=== PATIENT | male | born 1935 | race Caucasian/White ===

== ENCOUNTER → 2016-11-11 | Outpatient (CLI) | payer MEDICARE, BC ==
[~2016-11-11] MED LIST: AMIT10TA6 PO; AMIT50TA3 PO; ARIC23TA PO; BACL10TA PO; CLIN1CAP5 PO; CLON1TAB PO; GABA100C4 PO; GABA300C5 PO; HYDR-3516 PO; HYDR-3583 PO; INHALER PO; LYRI50CA PO; MACR100C2 PO; MACR100C3 PO; MEMA1TAB2 PO; MEMA28CA PO; NEUR300C PO; OXYC-259 PO; PREG25 PO; REFRDRO EACH EYE; TAMS5CAP PO; TIOT1AER INH; TOPR100T PO; TRAM50TA PO; URIB118C; URIB118C PO
--- NOTE | 2016-11-17 10:07 | RSPPFT ---
DATE OF PROCEDURE: 11/11/16 COMMENTS: Spirometry demonstrates an FEV1 of 1.1 at 57% of predicted, FVC of 2.4 at 72%, FEF 25-75 at 24% of predicted. Post-bronchodilator study demonstrated significant improvements in the FEV1 and FVC. Lung volumes demonstrated a raised RV/TLC ratio suggesting hyperinflation with air trapping. Diffusion capacity is mildly reduced. Flow volume loops are suggestive of an obstructive pattern. IMPRESSION: 1. Severe obstructive disease. 2. Significant response to use of bronchodilator indicating some reversibility. 3. Mild reduction in diffusion capacity.
== END ==
LOC: HRSP 10:33
DX: J44.9 Chronic obstructive pulmonary disease, unspecified (principal); R06.00 Dyspnea, unspecified
CPT/HCPCS: 94060; 94726; 94729

== ENCOUNTER → 2016-11-16 | Outpatient (CLI) | payer MEDICARE, BC ==
[2016-11-16 13:00] LABS: HEMATOCRIT 43.8 % (39.0-51.0); MEAN CELL VOLUME 91.7 FL (80.0-100.0); MEAN CORPUSCULAR HEMOGLOBIN 30.9 PG (27.0-34.0); MEAN CORPUSCULAR HGB CONC 33.7 % (32.0-36.0); PLATELET COUNT 152 TH/MM3 (150-450); RED BLOOD COUNT 4.78 MIL/MM3 (4.50-5.90); RED CELL DISTRIBUTION WIDTH 13.5 % (11.6-17.2); REVIEW FLAG FINAL; WHITE BLOOD COUNT 5.2 TH/MM3 (4.0-11.0)
[2016-11-16 13:31] LABS: ALKALINE PHOSPHATASE 62 U/L (45-117); ALT (GPT) 12 U/L (12-78); ANION GAP 8 MEQ/L (5-15); AST (GOT) 24 U/L (15-37); BICARBONATE 29.1 MEQ/L (21.0-32.0); BLOOD UREA NITROGEN 6 MG/DL (7-18); CHLORIDE 103 MEQ/L (98-107); GLOMERULAR FILTRATION RATE 82 ML/MIN (>89); GLUCOSE,FASTING 101 MG/DL (74-99); HDL CHOLESTEROL 74.5 MG/DL (40.0-60.0); LDL CHOLESTEROL 186 MG/DL (0-99); LDL CHOLESTEROL DIRECT 206 MG/DL (0-99); POTASSIUM 4.1 MEQ/L (3.5-5.1); SODIUM (NA) 140 MEQ/L (136-145); TOTAL BILIRUBIN ADULT 0.7 MG/DL (0.2-1.0)
== END ==
LOC: PLAB 09:47
PROVIDERS: ATTEND Family Medicine
DX: E78.2 Mixed hyperlipidemia (principal); I10 Essential (primary) hypertension; I73.9 Peripheral vascular disease, unspecified; J44.9 Chronic obstructive pulmonary disease, unspecified
CPT/HCPCS: 36415; 80053; 80061; 83721; 85027

== ENCOUNTER 2017-01-04 10:38 | Emergency (ER) | payer MEDICARE, BC ==
[~2017-01-04] VITALS: Ht 157.5 cm; Wt 80.9 kg
[~2017-01-04 10:38] MED LIST changes: -AMIT50TA3 PO; -CLIN1CAP5 PO; -CLON1TAB PO; -GABA300C5 PO; -HYDR-3516 PO; -HYDR-3583 PO; -INHALER PO; -LYRI50CA PO; -MACR100C2 PO; -MACR100C3 PO; -MEMA1TAB2 PO; -NEUR300C PO; -OXYC-259 PO; -PREG25 PO; -REFRDRO EACH EYE; -TIOT1AER INH; -URIB118C; -URIB118C PO
[2017-01-04 10:52] VITALS: BP 139/94; PULSE 57; RESP 16; O2SAT 96
--- NOTE | 2017-01-04 11:36 | PD ---
HPI Chief Complaint: Complaint Time Seen by Provider: 11:19 Travel History International Travel<30 days: No Contact w/Intl Traveler<30days: No Traveled to known affect area: No History of Present Illness HPI This patient complains of a flare of his chronic back pain. He has bilateral low back pain. No injury or fever or neurologic complaint. He is had months to years of this type of pain. He takes muscle relaxants and narcotics daily for it. He follows with pain management. He's had multiple pain management injections that don't last but he does get temporary relief from them. He is frustrated with his continued pain. No abdominal pain or urinary complaints. Severity is moderate PFSH Past Medical History AAA: Yes Arthritis: Yes Asthma: Yes Atrial Fibrillation: Yes Blood Disorders: No Anxiety: Yes Cancer: No Cardiovascular Problems: Yes (htn on meds) High Cholesterol: Yes COPD: Yes Dementia: Yes Diabetes: No Diminished Hearing: No Endocrine: No Gastrointestinal Disorders: Yes (IBS) Glaucoma: No Genitourinary: Yes (ENLARGED PROSTATE) Hepatitis: No Hiatal Hernia: No Hypertension: Yes Immune Disorder: No Medical other: Yes (C/O TINGLING TO TOES RIGHT >LEFT) Musculoskeletal: Yes Neurologic: Yes Respiratory: Yes (ASTHMA, COPD) Immunizations Current: Yes Thyroid Disease: No PNEUMOCCOCAL Vaccine (Year): 2 Past Surgical History Abdominal Surgery: No AICD: No Cardiac Surgery: No Ear Surgery: No Endocrine Surgery: No Eye Surgery: No Genitourinary Surgery: No Gynecologic Surgery: No Joint Replacement: Yes (RIGHT HIP) Neurologic Surgery: Yes (LUMBAR LAMINECTOMY, BACK SURGERY FOR DROP FOOT) Oral Surgery: No Pacemaker: No Thoracic Surgery: No Other Surgery: Yes (RIGHT UPPER LEG STENT) Social History Alcohol Use: No Tobacco Use: No (QUIT 30 YEARS AGO ) Substance Use: No Allergies-Medications (Allergen,Severity, Reaction): Coded Allergies: Amoxicillin (Verified Allergy, Severe, Hives, 01/04/17) Ativan (Verified Allergy, Severe, Confusion, 01/04/17) Fentanyl (Verified Allergy, Severe, CONFUSION, 01/04/17) Cipro (Verified Allergy, Mild, GI SYMPTOMS, 01/04/17) Percocet (Verified Allergy, Unknown, PT DOES NOT KNOW WHAT REACTION IS, ) UNKNOWN REACTION Lortab (Verified Adverse Reaction, Intermediate, NAUSEA AND CONSTIPATION, 01/04/17) Reported Meds & Prescriptions Reported Meds & Active Scripts Active Tramadol (Tramadol HCl) 50 Mg Tab 50 Mg PO Q6H PRN Reported Aricept (Donepezil) 23 Mg Tab 23 Mg PO HS Do not split, crushed or chewed. Namenda Xr (Memantine) 28 Mg Caper 28 Mg PO DAILY Flomax (Tamsulosin HCl) 0.4 Mg Cap 0.8 Mg PO HS Amitriptyline (Amitriptyline HCl) 10 Mg Tab 10 Mg PO HS Gabapentin 100 Mg Cap 200 Mg PO TID Baclofen 10 Mg Tab 10 Mg PO BID Toprol XL (Metoprolol Succinate) 100 Mg Tab 100 Mg PO DAILY Review of Systems General / Constitutional: No: Fever HENT: No: Headaches Cardiovascular: No: Chest Pain or Discomfort Physical Exam Narrative GASTROINTESTINAL: Abdomen soft, non-tender, nondistended. Positive bowel sounds. No hepato-splenomegaly, or palpable masses. No guarding. SKIN: Inspection shows no rash or ulcers. Palpation shows no induration or nodules. NEUROLOGICAL: Awake and alert. Pupils are equal round and reactive. Motor and sensory grossly within normal limits. Five out of 5 muscle strength in all muscle groups. Normal speech. Data Data Last Documented VS Vital Signs Date Time Temp Pulse Resp B/P Pulse Ox O2 Delivery O2 Flow Rate FiO2 01/04/17 10:52 57 16 139/94 96 Orders Ketorolac Inj (Toradol Inj) (01/04/17 11:45) [facility] Medical Decision Making Medical Screen Exam Complete: Yes Emergency Medical Condition: Yes Medical Record Reviewed: Yes Differential Diagnosis Acute flare of chronic back pain, sciatica, lumbar strain Narrative Course I have reviewed the patient's electronic medical record. Patient is at neurologic baseline but no red flags to suggest emergent imaging is indicated He seems to be having an acute flare of chronic pain However he is driving so I cannot give him anything sedating I gave him Toradol injection He has an appointment with his primary physician tomorrow morning Diagnosis Primary Impression: Acute exacerbation of chronic low back pain Additional Instructions: The patient was advised to follow up with their physician and return if they worsen. Med/Other Pt SpecificInfo: Other Disposition: 01 DISCHARGE HOME Condition: Stable Marc Barragan MD Jan 04, 2017 11:35
[2017-01-04] MEDS ORDERED: KETOROLAC TROMETHAMINE 60 MG/2 ML (IM) VIAL IM ONE (11:45)
[2017-01-15] MEDS ORDERED: HYDR-3583 PO (07:58)
[2017-01-15] MEDS ORDERED: PREG25 PO (07:58)
[2017-01-15] MEDS ORDERED: URIB118C PO (07:58)
[2017-01-15] MEDS ORDERED: CLON1TAB PO (07:58)
[2017-01-15] MEDS ORDERED: MEMA1TAB2 PO (07:58)
[2017-01-15] MEDS ORDERED: INHALER PO (08:00)
[2017-03-09] MEDS ORDERED: GABA300C5 PO (10:37)
[2017-04-06] MEDS ORDERED: MACR100C3 PO (13:59)
[2017-04-06] MEDS ORDERED: NEUR300C PO (13:59)
[2017-04-13] MEDS ORDERED: REFRDRO EACH EYE (09:23)
== END 2017-01-04 11:57 | disposition home or self-care (01) ==
LOC: PHED 10:38
DX: M54.5 Low back pain (principal); G89.29 Other chronic pain
CPT/HCPCS: 96372; 99283; J1885

== ENCOUNTER → 2017-02-12 | Outpatient (CLI) | payer MEDICARE, BC ==
[~2017-02-12] MED LIST changes: +AMIT50TA3 PO; +CLIN1CAP5 PO; +CLON1TAB PO; +GABA300C5 PO; +HYDR-3516 PO; +HYDR-3583 PO; +INHALER PO; +LYRI50CA PO; +MACR100C2 PO; +MACR100C3 PO; +MEMA1TAB2 PO; -MEMA28CA PO; +NEUR300C PO; +OXYC-259 PO; +PREG25 PO; +REFRDRO EACH EYE; +TIOT1AER INH; -TRAM50TA PO; +URIB118C; +URIB118C PO
[2017-02-12 12:49] LABS: HEMATOCRIT 41.1 % (39.0-51.0); MEAN CELL VOLUME 90.9 FL (80.0-100.0); MEAN CORPUSCULAR HEMOGLOBIN 30.3 PG (27.0-34.0); MEAN CORPUSCULAR HGB CONC 33.3 % (32.0-36.0); PLATELET COUNT 154 TH/MM3 (150-450); RED BLOOD COUNT 4.53 MIL/MM3 (4.50-5.90); RED CELL DISTRIBUTION WIDTH 13.1 % (11.6-17.2); REVIEW FLAG FINAL; WHITE BLOOD COUNT 5.4 TH/MM3 (4.0-11.0)
[2017-02-12 13:07] LABS: ALKALINE PHOSPHATASE 69 U/L (45-117); ALT (GPT) 10 U/L (12-78); GLUCOSE,FASTING 91 MG/DL (74-99); HDL CHOLESTEROL 61.1 MG/DL (40.0-60.0); LDL CHOLESTEROL DIRECT 145 MG/DL (0-99); TOTAL BILIRUBIN ADULT 0.6 MG/DL (0.2-1.0)
[2017-02-12 13:17] LABS: ANION GAP 5 MEQ/L (5-15); AST (GOT) 35 U/L (15-37); BICARBONATE 29.5 MEQ/L (21.0-32.0); BLOOD UREA NITROGEN 5 MG/DL (7-18); CHLORIDE 104 MEQ/L (98-107); GLOMERULAR FILTRATION RATE 85 ML/MIN (>89); LDL CHOLESTEROL 134 MG/DL (0-99); POTASSIUM 4.9 MEQ/L (3.5-5.1); SODIUM (NA) 138 MEQ/L (136-145)
== END ==
LOC: PLAB 09:23
PROVIDERS: ATTEND Family Medicine
DX: E78.2 Mixed hyperlipidemia (principal); I10 Essential (primary) hypertension; I73.9 Peripheral vascular disease, unspecified; G30.9 Alzheimer's disease, unspecified
CPT/HCPCS: 36415; 80053; 80061; 83721; 85027

== ENCOUNTER 2017-02-22 18:59 | Emergency (ER) | payer MEDICARE, BC ==
[~2017-02-22] VITALS: Ht 167.6 cm; Wt 84.7 kg
[~2017-02-22 18:59] MED LIST changes: -AMIT50TA3 PO; -CLIN1CAP5 PO; -GABA300C5 PO; -HYDR-3516 PO; -LYRI50CA PO; -MACR100C2 PO; -MACR100C3 PO; -NEUR300C PO; -OXYC-259 PO; -REFRDRO EACH EYE; -TIOT1AER INH; -URIB118C
[2017-02-22 19:12] VITALS: BP 145/69; PULSE 60; RESP 18; TEMP 98.9; O2SAT 94
[2017-02-22] MEDS ORDERED: TIOT1AER INH (19:44)
[2017-02-22] MEDS ORDERED: LYRI50CA PO (19:44)
[2017-02-22] MEDS ORDERED: HYDR-3583 PO (19:44)
[2017-02-22] MEDS ORDERED: URIB118C (19:44)
[2017-02-22] MEDS ORDERED: MEMA1TAB2 PO (19:44)
[2017-02-22] MEDS ORDERED: AMIT50TA3 PO (19:44)
[2017-02-22] MEDS ORDERED: SODIUM CHLORIDE 0.9% FLUSH 10 ML FLUSH IV FLUSH PRN (20:15)
--- NOTE | 2017-02-22 20:17 | PD ---
HPI Chief Complaint: Edema Time Seen by Provider: 19:36 Travel History International Travel<30 days: No Contact w/Intl Traveler<30days: No Traveled to known affect area: No History of Present Illness HPI Patient 81-year-old male presents emergency department for evaluation of bilateral lower extremity swelling. Otherwise the patient has a history of poor circulation in his lower extremities. She states that he has not been wearing his compression stockings for many weeks and the swelling started yesterday. He denies any shortness of breath denies any kidney problems liver problems. Patient also states that Dr. Alvarado put a stent in his thigh at one point for poor circulation. 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 PFSH Past Medical History AAA: Yes Arthritis: Yes Asthma: Yes Atrial Fibrillation: Yes Blood Disorders: No Anxiety: Yes Cancer: No Cardiovascular Problems: Yes (htn on meds) High Cholesterol: Yes COPD: Yes Dementia: Yes Diabetes: No Diminished Hearing: No Endocrine: No Gastrointestinal Disorders: Yes (IBS) Glaucoma: No Genitourinary: Yes (ENLARGED PROSTATE) Hepatitis: No Hiatal Hernia: No Hypertension: Yes Immune Disorder: No Medical other: Yes (C/O TINGLING TO TOES RIGHT >LEFT) Musculoskeletal: Yes Neurologic: Yes Respiratory: Yes (ASTHMA, COPD) Immunizations Current: Yes Thyroid Disease: No Tetanus Vaccination: < 5 Years Influenza Vaccination: Yes PNEUMOCCOCAL Vaccine (Year): 2 ?: Not Past Surgical History Abdominal Surgery: No AICD: No Cardiac Surgery: No Ear Surgery: No Endocrine Surgery: No Eye Surgery: No Genitourinary Surgery: No Gynecologic Surgery: No Joint Replacement: Yes (RIGHT HIP) Neurologic Surgery: Yes (LUMBAR LAMINECTOMY, BACK SURGERY FOR DROP FOOT) Oral Surgery: No Pacemaker: No Thoracic Surgery: No Other Surgery: Yes (RIGHT UPPER LEG STENT) Social History Alcohol Use: No Tobacco Use: No (QUIT 30 YEARS AGO ) Substance Use: No Allergies-Medications (Allergen,Severity, Reaction): Coded Allergies: Amoxicillin (Verified Allergy, Severe, Hives, 02/22/17) Ativan (Verified Allergy, Severe, Confusion, 02/22/17) Fentanyl (Verified Allergy, Severe, CONFUSION, 02/22/17) Cipro (Verified Allergy, Mild, GI SYMPTOMS, 02/22/17) Percocet (Verified Allergy, Unknown, PT DOES NOT KNOW WHAT REACTION IS, ) UNKNOWN REACTION Lortab (Verified Adverse Reaction, Intermediate, NAUSEA AND CONSTIPATION, 02/22/17) Reported Meds & Prescriptions Reported Meds & Active Scripts Active Reported Hydrocodone-Acetaminophen 10-325 mg Tab 1 Tab PO Q4H PRN Memantine 10 Mg Tab 10 Mg PO BID Amitriptyline (Amitriptyline HCl) 50 Mg Tab 50 Mg PO HS Uribel (Pgsznihiyqh-Rcahc-Vfwxsjaqr Blue) 1 Cap Lyrica (Pregabalin) 50 Mg Cap 50 Mg PO BID Stiolto Respimat Inh (Tiotropium-Olodaterol Inh) 2.5-2.5 Mcg/Act Aero 2 Puff INH DAILY Aricept (Donepezil) 23 Mg Tab 23 Mg PO HS Do not split, crushed or chewed. Flomax (Tamsulosin HCl) 0.4 Mg Cap 0.8 Mg PO HS Baclofen 10 Mg Tab 10 Mg PO BID Toprol XL (Metoprolol Succinate) 100 Mg Tab 100 Mg PO DAILY Review of Systems Except as stated in HPI: all other systems reviewed are Neg Physical Exam Narrative GENERAL: Well-developed well-nourished in no apparent distress.] SKIN: Focused skin assessment warm/dry. There are bilateral skin changes of the lower extremities consistent with chronic venous stasis. Multiple varicose veins. There is signs of adequate perfusion to both lower extremities. HEAD: Atraumatic. Normocephalic. EYES: Pupils equal and round. No scleral icterus. No injection or drainage. ENT: No nasal bleeding or discharge. Mucous membranes pink and moist. NECK: Trachea midline. No JVD. CARDIOVASCULAR: Regular rate and rhythm. No murmur appreciated. RESPIRATORY: No accessory muscle use. Clear to auscultation. Breath sounds equal bilaterally. GASTROINTESTINAL: Abdomen soft, non-tender, nondistended. Hepatic and splenic margins not palpable. MUSCULOSKELETAL: No obvious deformities. No clubbing. No cyanosis. 2+ pitting bilateral lower extremity edema on the dorsum of the foot up to the proximal tibia. A small skin avulsion on the anterior tibia which is bandaged. There is a small ulcer on the posterior heel which appears noninfected. Brisk cap refill bilaterally. Dorsalis pedal pulses are palpable but weak but equal bilaterally. NEUROLOGICAL: Awake and alert. No obvious cranial nerve deficits. Motor grossly within normal limits. Normal speech. PSYCHIATRIC: Appropriate mood and affect; insight and judgment normal. Data Data Last Documented VS Vital Signs Date Time Temp Pulse Resp B/P Pulse Ox O2 Delivery O2 Flow Rate FiO2 02/22/17 22:21 60 18 160/70 94 02/22/17 21:22 Room Air 02/22/17 19:12 98.9 Orders Us Leg Venous Doppler Bilat (02/22/17 20:11) Complete Blood Count With Diff (02/22/17 20:11) Comprehensive Metabolic Panel (02/22/17 20:11) Prothrombin Time / Inr (Pt) (02/22/17 20:11) Act Partial Throm Time (Ptt) (02/22/17 20:11) Iv Access Insert/Monitor (02/22/17 20:11) Ecg Monitoring (02/22/17 20:11) Oximetry (02/22/17 20:11) Sodium Chloride 0.9% Flush (Ns Flush) (02/22/17 20:15) Chest, Single Ap (02/22/17 20:11) Labs Laboratory Tests Test 02/22/17 21:30 White Blood Count 5.7 TH/MM3 Red Blood Count 4.16 MIL/MM3 Hemoglobin 12.9 GM/DL Hematocrit 37.5 % Mean Corpuscular Volume 90.2 FL Mean Corpuscular Hemoglobin 31.0 PG Mean Corpuscular Hemoglobin 34.3 % Concent Red Cell Distribution Width 12.2 % Platelet Count 161 TH/MM3 Mean Platelet Volume 7.6 FL Neutrophils (%) (Auto) 59.8 % Lymphocytes (%) (Auto) 27.1 % Monocytes (%) (Auto) 8.5 % Eosinophils (%) (Auto) 2.8 % Basophils (%) (Auto) 1.8 % Neutrophils # (Auto) 3.3 TH/MM3 Lymphocytes # (Auto) 1.6 TH/MM3 Monocytes # (Auto) 0.5 TH/MM3 Eosinophils # (Auto) 0.2 TH/MM3 Basophils # (Auto) 0.1 TH/MM3 CBC Comment DIFF FINAL Differential Comment Prothrombin Time 10.6 SEC Prothromb Time International 1.0 RATIO Ratio Activated Partial 26.7 SEC Thromboplast Time Sodium Level 143 MEQ/L Potassium Level 4.4 MEQ/L Chloride Level 104 MEQ/L Carbon Dioxide Level 34.4 MEQ/L Anion Gap 5 MEQ/L Blood Urea Nitrogen 9 MG/DL Creatinine 1.50 MG/DL Estimat Glomerular Filtration 45 ML/MIN Rate Random Glucose 86 MG/DL Calcium Level 8.6 MG/DL Total Bilirubin 0.2 MG/DL Aspartate Amino Transf 21 U/L (AST/SGOT) Alanine Aminotransferase 11 U/L (ALT/SGPT) Alkaline Phosphatase 63 U/L Total Protein 6.6 GM/DL Albumin 2.9 GM/DL [facility] Medical Decision Making Medical Screen Exam Complete: Yes Emergency Medical Condition: Yes Differential Diagnosis pedal edema, kidney failure unlikely, chf unlikely, dvt unlikely. Narrative Course patient roomed in ed, my overall impression is bilateral pedal edema in a patient with a history of peripheral vascular edema who has not been wearing his compression stockings. he appears well. no pulmonary congestion. labs show minimal elevation of cr. this was discussed with patient and he would like to go home and follow up with his pcp. discussed symptomatic management and return to ed criteria. Diagnosis Primary Impression: Pedal edema Disposition: 01 DISCHARGE HOME Condition: Stable Lj Borjas MD Feb 22, 2017 20:17
--- NOTE | 2017-02-22 20:40 | RADHPO ---
EXAM DATE/TIME: 02/22/2017 20:21 [facility] COMPARISON: CHEST SINGLE AP, October 26, 2015, 10:53. INDICATIONS : Shortness of breath. MEDICAL HISTORY : None. SURGICAL HISTORY : None. ENCOUNTER: Initial ACUITY: 1 day PAIN SCORE: 0/10 LOCATION: Bilateral chest FINDINGS: A single view of the chest demonstrates the lungs to be symmetrically aerated without evidence of mas s, infiltrate or effusion. The cardiomediastinal contours are unremarkable. Osseous structures are intact. CONCLUSION: No evidence of acute cardiopulmonary disease. Jamie Mauro MD on February 22, 2017 at 20:37 Board Certified Radiologist. This report was verified electronically.
--- NOTE | 2017-02-22 21:08 | RADHPO ---
EXAM DATE/TIME: 02/22/2017 20:29 [facility] COMPARISON: US LEG RIGHT VENOUS DOPPLER, April 05, 2014, 14:59. INDICATIONS : Bilateral leg swelling. MEDICAL HISTORY : Hypertension. High cholesterol. AAA. PVD. Afib. COPD. SURGICAL HISTORY : Lumbar laminectomy. Angioplasty. Right foot surgery. Right leg stent. ENCOUNTER: Initial ACUITY: 1 week PAIN SCORE: 4/10 LOCATION: Bilateral leg. TECHNIQUE: Venous ultrasound of the left and right leg was performed from the inguinal ligament to the proximal calf. Real-time, color Doppler and spectral tracing, compression and augmentation techniques were us ed. FINDINGS: RIGHT LEG: There is normal compressibility of the deep venous system from the inguinal region to the proximal ca lf. No echogenic clot is seen in the lumen of the common femoral, femoral, popliteal, and posterior tibial veins. There is a normal response of the venous system to proximal and distal augmentation an d respiration. LEFT LEG: There is normal compressibility of the deep venous system from the inguinal region to the proximal ca lf. No echogenic clot is seen in the lumen of the common femoral, femoral, popliteal, and posterior tibial veins. There is a normal response of the venous system to proximal and distal augmentation an d respiration. CONCLUSION: No DVT of either lower extremity. Jamie Mauro MD on February 22, 2017 at 21:06 Board Certified Radiologist. This report was verified electronically.
[2017-02-22 21:22] VITALS: O2SAT 94
[2017-02-22 21:35] LABS: AUTOMATED NEUTROPHIL # 3.3 TH/MM3 (1.8-7.7); BASOPHIL # 0.1 TH/MM3 (0-0.2); BASOPHIL % 1.8 % (0.0-2.0); EOSINOPHIL # 0.2 TH/MM3 (0-0.4); EOSINOPHIL % 2.8 % (0.0-4.0); HEMATOCRIT 37.5 % (39.0-51.0); HEMO FLAGS DIFF FINAL; LYMPH % 27.1 % (9.0-44.0); LYMPHOCYTE # 1.6 TH/MM3 (1.0-4.8); MEAN CELL VOLUME 90.2 FL (80.0-100.0); MEAN CORPUSCULAR HGB CONC 34.3 % (32.0-36.0); MONO % 8.5 % (0.0-8.0); NEUT % 59.8 % (16.0-70.0); PLATELET COUNT 161 TH/MM3 (150-450); RED BLOOD COUNT 4.16 MIL/MM3 (4.50-5.90); RED CELL DISTRIBUTION WIDTH 12.2 % (11.6-17.2); WHITE BLOOD COUNT 5.7 TH/MM3 (4.0-11.0)
[2017-02-22 21:42] LABS: CHLORIDE 104 MEQ/L (98-107); POTASSIUM 4.4 MEQ/L (3.5-5.1); SODIUM (NA) 143 MEQ/L (136-145)
[2017-02-22 21:46] LABS: ANION GAP 5 MEQ/L (5-15); BICARBONATE 34.4 MEQ/L (21.0-32.0); BLOOD UREA NITROGEN 9 MG/DL (7-18)
[2017-02-22 21:49] LABS: ALT (GPT) 11 U/L (12-78); AST (GOT) 21 U/L (15-37); GLOMERULAR FILTRATION RATE 45 ML/MIN (>89)
[2017-02-22 21:51] LABS: TOTAL BILIRUBIN ADULT 0.2 MG/DL (0.2-1.0)
[2017-02-22 21:52] LABS: ALKALINE PHOSPHATASE 63 U/L (45-117)
[2017-02-22 21:57] LABS: APTT (PATIENT) 26.7 SEC (24.3-30.1); PROTHROMBIN TIME - PATIENT 10.6 SEC (9.8-11.6)
[2017-02-22 22:21] VITALS: BP 160/70
[2017-03-09] MEDS ORDERED: GABA300C5 PO (10:37)
[2017-04-06] MEDS ORDERED: MACR100C3 PO (13:59)
[2017-04-06] MEDS ORDERED: NEUR300C PO (13:59)
[2017-04-13] MEDS ORDERED: REFRDRO EACH EYE (09:23)
== END 2017-02-22 22:42 | disposition home or self-care (01) ==
LOC: PHED 18:59
DX: R60.0 Localized edema (principal); S81.801A Unspecified open wound, right lower leg, initial encounter; L97.419 Non-pressure chronic ulcer of right heel and midfoot with unspecified severity; M19.90 Unspecified osteoarthritis, unspecified site; E78.00 Pure hypercholesterolemia, unspecified; J44.9 Chronic obstructive pulmonary disease, unspecified; F03.90 Unspecified dementia, unspecified severity, without behavioral disturbance, psychotic disturbance, mood disturbance, and anxiety; I48.91 Unspecified atrial fibrillation; I10 Essential (primary) hypertension; J45.909 Unspecified asthma, uncomplicated; Z96.641 Presence of right artificial hip joint; X58.XXXA Exposure to other specified factors, initial encounter; Y93.9 Activity, unspecified; Y92.9 Unspecified place or not applicable; Y99.9 Unspecified external cause status
CPT/HCPCS: 71010; 80053; 85025; 85610; 85730; 93970

== ENCOUNTER 2017-03-26 00:26 | Emergency (ER) | payer MEDICARE, BC ==
[~2017-03-26] VITALS: Ht 167.6 cm; Wt 93.4 kg
[~2017-03-26 00:26] MED LIST changes: -AMIT10TA6 PO; +AMIT50TA3 PO; -CLON1TAB PO; -GABA100C4 PO; +GABA300C5 PO; -INHALER PO; +LYRI50CA PO; -PREG25 PO; +TIOT1AER INH; +URIB118C; -URIB118C PO
[2017-03-26 00:33] VITALS: BP 133/68; PULSE 59; RESP 16; TEMP 98; O2SAT 93
[2017-03-26 01:23] VITALS: BP 131/60; PULSE 54; RESP 16; O2SAT 93
[2017-03-26 02:23] LABS: BLOOD, URINE TRACE (NEG); GLUCOSE,URINE NEG (NEG); KETONE, URINE NEG (NEG); NITRITE,URINE NEG (NEG); PH, URINE 6.5 (5.0-8.5)
[2017-03-26 02:31] LABS: RBC, URINE 0-3 /hpf (0-3); URINE COLOR GREEN (YELLW/STRAW)
[2017-03-26 02:32] LABS: BACTERIA, URINE OCC /hpf; COMMENT (UR) CULTURE INDICATED; CULTURE IF INDICATED CULTURE INDICATED; SQUAMOUS EPITHELIAL CELL URINE 0-5 /hpf (0-5)
[2017-03-26 02:45] VITALS: BP 158/74; PULSE 64; RESP 16; O2SAT 98
[2017-03-26 02:46] LABS: POTASSIUM 4.1 MEQ/L (3.5-5.1)
[2017-03-26 02:49] LABS: BICARBONATE 28.8 MEQ/L (21.0-32.0)
[2017-03-26 02:50] LABS: AUTOMATED NEUTROPHIL # 5.4 TH/MM3 (1.8-7.7); BASOPHIL # 0.1 TH/MM3 (0-0.2); BASOPHIL % 1.8 % (0.0-2.0); EOSINOPHIL # 0.2 TH/MM3 (0-0.4); EOSINOPHIL % 2.9 % (0.0-4.0); HEMATOCRIT 39.4 % (39.0-51.0); HEMO FLAGS DIFF FINAL; LYMPH % 19.7 % (9.0-44.0); LYMPHOCYTE # 1.6 TH/MM3 (1.0-4.8); MEAN CELL VOLUME 90.9 FL (80.0-100.0); MEAN CORPUSCULAR HEMOGLOBIN 29.8 PG (27.0-34.0); MEAN CORPUSCULAR HGB CONC 32.8 % (32.0-36.0); MONO % 9.4 % (0.0-8.0); NEUT % 66.2 % (16.0-70.0); PLATELET COUNT 161 TH/MM3 (150-450); RED BLOOD COUNT 4.33 MIL/MM3 (4.50-5.90); RED CELL DISTRIBUTION WIDTH 12.9 % (11.6-17.2); WHITE BLOOD COUNT 8.1 TH/MM3 (4.0-11.0)
[2017-03-26] MEDS ORDERED: IOHEXOL 350 MG/ML 10 ML VIAL (for RAD DIAG) IV ONE (03:30)
--- NOTE | 2017-03-26 03:37 | PD ---
HPI Chief Complaint: Back/ Neck Pain or Injury Time Seen by Provider: 01:40 Travel History International Travel<30 days: No Contact w/Intl Traveler<30days: No Traveled to known affect area: No History of Present Illness HPI 81-year-old male presents to the emergency department by private transportation in the care of his spouse for complaint of low back pain. Patient has had low back pain for months and is under the care of Dr. Meeks is his pain management doctor. No new complaint of lower extremity numbness tingling or weakness. No new complaint of bladder or bowel dysfunction. No new complaint of saddle anesthesia. Patient is also being managed for peripheral vascular disease with ischemic ulcers and compression stockings and Unna boot applied to the right lower extremity. Patient is also under the care of Dr. Jose at the wound care center. Patient's had no fever or chills. Patient denies any abdominal pain. Patient has had no nausea vomiting. Patient took his prescription hydrocodone was some symptom relief. Due to ongoing pain decided to come to the emergency room for evaluation. states he reportedly was crying at home. Here patient "cyst pain as 10 over 10 in intensity. PFSH Past Medical History Narrative Medical aaa, arthritis asthma atrial fibrillation CAD dyslipidemia COPD dementia chronic pain syndrome lumbar disc disease GERD hypertension peripheral neuropathy PVD lumbar laminectomy no alcohol or tobacco use AAA: Yes Arthritis: Yes Asthma: Yes Atrial Fibrillation: Yes Blood Disorders: No Anxiety: Yes Cancer: No Cardiovascular Problems: Yes (htn on meds) High Cholesterol: Yes COPD: Yes Dementia: Yes Diabetes: No Diminished Hearing: No Endocrine: No Gastrointestinal Disorders: Yes (IBS) Glaucoma: No Genitourinary: Yes (ENLARGED PROSTATE) Hepatitis: No Hiatal Hernia: No Hypertension: Yes Immune Disorder: No Medical other: Yes (C/O TINGLING TO TOES RIGHT >LEFT) Musculoskeletal: Yes Neurologic: Yes Respiratory: Yes (ASTHMA, COPD) Immunizations Current: Yes Thyroid Disease: No PNEUMOCCOCAL Vaccine (Year): 2 Past Surgical History Abdominal Surgery: No AICD: No Cardiac Surgery: No Ear Surgery: No Endocrine Surgery: No Eye Surgery: No Genitourinary Surgery: No Gynecologic Surgery: No Joint Replacement: Yes (RIGHT HIP) Neurologic Surgery: Yes (LUMBAR LAMINECTOMY, BACK SURGERY FOR DROP FOOT) Oral Surgery: No Pacemaker: No Thoracic Surgery: No Other Surgery: Yes (RIGHT UPPER LEG STENT) Social History Alcohol Use: No Tobacco Use: No (QUIT 30 YEARS AGO ) Substance Use: No Allergies-Medications (Allergen,Severity, Reaction): Coded Allergies: Amoxicillin (Verified Allergy, Severe, Hives, 03/23/17) Ativan (Verified Allergy, Severe, Confusion, 03/23/17) Fentanyl (Verified Allergy, Severe, CONFUSION, 03/23/17) Cipro (Verified Allergy, Mild, GI SYMPTOMS, 03/23/17) Percocet (Verified Allergy, Unknown, PT DOES NOT KNOW WHAT REACTION IS, ) UNKNOWN REACTION Lortab (Verified Adverse Reaction, Intermediate, NAUSEA AND CONSTIPATION, 03/23/17) Reported Meds & Prescriptions Reported Meds & Active Scripts Active Macrobid (Nitrofurantoin Monoh/Nitrofur Macro) 100 Mg Cap 100 Mg PO BID 10 Days Reported Gabapentin 300 Mg Cap 900 Mg PO BID Hydrocodone-Acetaminophen 10-325 mg Tab 1 Tab PO Q4H PRN Memantine 10 Mg Tab 10 Mg PO BID Amitriptyline (Amitriptyline HCl) 50 Mg Tab 50 Mg PO HS Uribel (Nlinbfryhtx-Hrovi-Qwazbhjig Blue) 1 Cap Lyrica (Pregabalin) 50 Mg Cap 50 Mg PO BID Stiolto Respimat Inh (Tiotropium-Olodaterol Inh) 2.5-2.5 Mcg/Act Aero 2 Puff INH DAILY Aricept (Donepezil) 23 Mg Tab 23 Mg PO HS Do not split, crushed or chewed. Flomax (Tamsulosin HCl) 0.4 Mg Cap 0.8 Mg PO HS Baclofen 10 Mg Tab 10 Mg PO BID Toprol XL (Metoprolol Succinate) 100 Mg Tab 100 Mg PO DAILY Review of Systems Except as stated in HPI: all other systems reviewed are Neg Physical Exam Narrative GENERAL: Well-developed and nourished male in no apparent distress no respiratory distress SKIN: Warm and dry. HEAD: Atraumatic. Normocephalic. EYES: Pupils equal and round. No scleral icterus. No injection or drainage. ENT: No nasal bleeding or discharge. Mucous membranes pink and moist. NECK: Trachea midline. No JVD. CARDIOVASCULAR: Regular rate and rhythm. RESPIRATORY: No accessory muscle use. Clear to auscultation. Breath sounds equal bilaterally. GASTROINTESTINAL: Abdomen soft, non-tender, nondistended. Hepatic and splenic margins not palpable. No palpable pulsatile mass. MUSCULOSKELETAL: Extremities without clubbing, cyanosis, or edema. No obvious deformities. Hip and low back pain increase with hip flexion and lower extremity extension however negative straight-leg raising bilaterally. NEUROLOGICAL: Awake and alert. No obvious cranial nerve deficits. Motor grossly within normal limits. Five out of 5 muscle strength in the arms and legs. Normal speech. PSYCHIATRIC: Appropriate mood and affect; insight and judgment normal. Data Data Last Documented VS Vital Signs Date Time Temp Pulse Resp B/P Pulse Ox O2 Delivery O2 Flow Rate FiO2 03/26/17 04:00 64 16 147/72 98 Room Air 03/26/17 00:[address] Abd/Pel W Iv Contrast(Rout) (03/26/17 ) Complete Blood Count With Diff (03/26/17 01:40) Basic Metabolic Panel (Bmp) (03/26/17 01:40) ^ Saline Lock (03/26/17 01:40) Urinalysis - C+S If Indicated (03/26/17 01:40) Urine Culture (03/26/17 02:02) Iohexol 350 Inj (Omnipaque 350 Inj) (03/26/17 03:30) Sulfamet-Trimeth Ds 800-160 Mg (Bactrim (03/26/17 04:15) Dexamethasone Inj (Decadron Inj) (03/26/17 04:15) Ketorolac Inj (Toradol Inj) (03/26/17 04:15) Nitrofurantoin Monohyd Macrocr (Macrobid (03/26/17 04:15) Labs Laboratory Tests Test 03/26/17 03/26/17 02:02 02:30 Urine Color GREEN Urine Turbidity CLEAR Urine pH 6.5 Urine Specific [place] 1.010 Urine Protein NEG mg/dL Urine Glucose (UA) NEG mg/dL Urine Ketones NEG mg/dL Urine Occult Blood TRACE Urine Nitrite NEG Urine Bilirubin NEG Urine Leukocyte Esterase LARGE Urine RBC 0-3 /hpf Urine WBC 20-24 /hpf Urine WBC Clumps FEW Urine Squamous Epithelial 0-5 /hpf Cells Urine Bacteria OCC /hpf Microscopic Urinalysis Comment CULTURE INDICATED White Blood Count 8.1 TH/MM3 Red Blood Count 4.33 MIL/MM3 Hemoglobin 12.9 GM/DL Hematocrit 39.4 % Mean Corpuscular Volume 90.9 FL Mean Corpuscular Hemoglobin 29.8 PG Mean Corpuscular Hemoglobin 32.8 % Concent Red Cell Distribution Width 12.9 % Platelet Count 161 TH/MM3 Mean Platelet Volume 8.8 FL Neutrophils (%) (Auto) 66.2 % Lymphocytes (%) (Auto) 19.7 % Monocytes (%) (Auto) 9.4 % Eosinophils (%) (Auto) 2.9 % Basophils (%) (Auto) 1.8 % Neutrophils # (Auto) 5.4 TH/MM3 Lymphocytes # (Auto) 1.6 TH/MM3 Monocytes # (Auto) 0.8 TH/MM3 Eosinophils # (Auto) 0.2 TH/MM3 Basophils # (Auto) 0.1 TH/MM3 CBC Comment DIFF FINAL Differential Comment Sodium Level 139 MEQ/L Potassium Level 4.1 MEQ/L Chloride Level 103 MEQ/L Carbon Dioxide Level 28.8 MEQ/L Anion Gap 7 MEQ/L Blood Urea Nitrogen 10 MG/DL Creatinine 0.91 MG/DL Estimat Glomerular Filtration 80 ML/MIN Rate Random Glucose 95 MG/DL Calcium Level 8.8 MG/DL MDM Medical Decision Making Medical Screen Exam Complete: Yes Emergency Medical Condition: Yes Medical Record Reviewed: Yes Interpretation(s) UA: White blood cells clumped white blood cells bacteria culture indicated Last Impressions Abdomen/Pelvis CT 03/26/17 0000 Signed Impressions: Service Date/Time: Sunday, March 26, 2017 03:17 - CONCLUSION: 1. 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 2. Postoperative right total hip replacement. 3. Stable 3.2 cm infrarenal abdominal aneurysm. 4. Diverticulosis without diverticulitis. 5. No acute findings within the abdomen or pelvis. John Jordan MD CBC & BMP Diagram 03/26/17 02:30 Vital Signs Date Time Temp Pulse Resp B/P Pulse Ox O2 Delivery O2 Flow Rate FiO2 03/26/17 02:45 64 16 158/74 98 Room Air 03/26/17 01:23 54 16 131/60 93 Room Air 03/26/17 01:14 16 03/26/17 00:33 98.0 59 16 133/68 93 Differential Diagnosis Acute on chronic back pain, lumbar disc disease, spinal stenosis, HNP, renal colic, aortic dissection, abdominal aortic aneurysm, UTI, diverticulitis Narrative Course IV access obtained specimens collected and sent for resulting patient has just taken hydrocodone prior to arrival to the emergency department Patient without lower extremity numbness tingling weakness bladder or bowel dysfunction or saddle anesthesia; review of medical records indicates patient has had extensive evaluation and management of peripheral vascular disease with stenting with occlusion with collateral flow chronic stasis/ischemic lower leg ulcerations under the care of Dr. Jose as well as chronic pain syndrome with significant lumbar disc disease and degenerative changes under the care of Dr. Meeks. No new injury or new symptoms just persistent and waiting to undergo new procedure by pain management for chronic pain syndrome. CT abdomen and pelvis imaging ordered as well. Patient identified to have abnormal urinalysis with white blood cells clumped white blood cells and leukocyte Estrace and bacteria cultures indicated; patient given first dose of antibiotic; CT abdomen and pelvis reveals severe lumbar disc disease stable 3.2 cm bowel aortic aneurysm and no other acute findings. At 4:15 AM patient stable for outpatient management Diagnosis Primary Impression: Lumbar discogenic pain syndrome Additional Impression: UTI (urinary tract infection) Qualified Code: N39.0 - Urinary tract infection without hematuria, site unspecified Referrals: Pain Management call for appointment Primary Care Physician call for appointment Patient Instructions: General Instructions Additional Instructions: Complete course of antibiotic as prescribed Continue current chronic pain medication as prescribed as needed Follow-up with your pain management provider, call office in a.m. to schedule follow-up appointment Follow-up with your primary care provider call office in a.m. to schedule follow -up appointment Return to the emergency department for any concerns or change in condition Med/Other Pt SpecificInfo: Prescription(s) given Scripts Nitrofurantoin Monohydrate Macrocrystals (Macrobid)100 Mg Osn053 Mg PO BID 10 Days Ref 0 Prov:Charlotte Low MD 03/26/17 Charlotte Low MD March 26, 2017 03:37
--- NOTE | 2017-03-26 03:42 | RADHPO ---
EXAM DATE/TIME: 03/26/2017 03:17 [facility] COMPARISON: No previous studies available for comparison. INDICATIONS : Lower back pain for two days. IV CONTRAST: 95 cc Omnipaque 350 (iohexol) IV ORAL CONTRAST: No oral contrast ingested. RADIATION DOSE: 18.83 CTDIvol (mGy) MEDICAL HISTORY : Aneurysm, abdominal. Hypertension. Chronic obstructive pulmonary disease. SURGICAL HISTORY : Lumbar laminectomy. Right hip replacement. ENCOUNTER: Initial ACUITY: 2 days PAIN SCALE: 7/10 LOCATION: lower back. TECHNIQUE: Volumetric scanning of the abdomen and pelvis was performed. Using automated exposure control and ad justment of the mA and/or kV according to patient size, radiation dose was kept as low as reasonably achievable to obtain optimal diagnostic quality images. FINDINGS: There is severe degenerative disc disease in the lumbar spine with a rotatory dextroscoliosis similar in appearance to March 2015. Lung bases are clear. No significant abnormality in the liver, spleen, ad renals, kidneys or pancreas. No calcified gallstones or biliary ductal dilatation. There is a 3.2 cm infrarenal abdominal aortic aneurysm similar to March 2015. Densely calcified mesente usman lymph nodes are present similar to prior exam. Colonic diverticulosis present without evidence fo r diverticulitis. There is previous right hip replacement. CONCLUSION: 1. 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 2. Postoperative right total hip replacement. 3. Stable 3.2 cm infrarenal abdominal aneurysm. 4. Diverticulosis without diverticulitis. 5. No acute findings within the abdomen or pelvis. John Jordan MD on March 26, 2017 at 3:33 Board Certified Radiologist. This report was verified electronically.
[2017-03-26 04:00] VITALS: BP 147/72; PULSE 64; RESP 16; O2SAT 98
[2017-03-26] MEDS ORDERED: MACR100C2 PO (04:09)
[2017-03-26] MEDS ORDERED: DEXAMETHASONE SOD PHOS 4 MG/ML VIAL IV PUSH ONE (04:15)
[2017-03-26] MEDS ORDERED: KETOROLAC TROMETHAMINE 30 MG/ML (IVP) VIAL IV PUSH ONE (04:15)
[2017-03-26] MEDS ORDERED: NITROFURANTOIN MONOHYD MACROCR 100 MG CAP PO ONE (04:15)
[2017-03-26] MEDS ORDERED: SULFAMETHOXAZOLE-TRIMETHOPRIM DS 800-160 MG TAB PO ONE (04:15)
[2017-04-06] MEDS ORDERED: NEUR300C PO (13:59)
[2017-04-06] MEDS ORDERED: MACR100C3 PO (13:59)
[2017-04-13] MEDS ORDERED: REFRDRO EACH EYE (09:23)
== END 2017-03-26 05:07 | disposition home or self-care (01) ==
LOC: PHED 00:26
DX: M54.5 Low back pain (principal); N39.0 Urinary tract infection, site not specified; G89.4 Chronic pain syndrome; I10 Essential (primary) hypertension; F03.90 Unspecified dementia, unspecified severity, without behavioral disturbance, psychotic disturbance, mood disturbance, and anxiety; E78.00 Pure hypercholesterolemia, unspecified; Z86.79 Personal history of other diseases of the circulatory system; Z87.39 Personal history of other diseases of the musculoskeletal system and connective tissue; Z87.09 Personal history of other diseases of the respiratory system; Z86.59 Personal history of other mental and behavioral disorders; Z87.19 Personal history of other diseases of the digestive system; Z87.438 Personal history of other diseases of male genital organs; Z86.69 Personal history of other diseases of the nervous system and sense organs
CPT/HCPCS: 74177; 80048; 81001; 85025; 87086; 96374; 96375; 99284; J1100; J1885; Q9967

== ENCOUNTER → 2017-04-13 | Day surgery (SDC) | payer MEDICARE, BC ==
[~2017-04-13] MED LIST changes: +CLIN1CAP5 PO; -GABA300C5 PO; +HYDR-3516 PO; +MACR100C3 PO; +NEUR300C PO; +OXYC-259 PO; +PROPOFOL 200 MG/20 ML AMP IV ONE; +REFRDRO EACH EYE; +SODIUM CHLORIDE 0.9% 10 ML VIAL ONE
--- NOTE | 2017-04-14 09:04 | M6 ---
cc: GIORGI MEEKS M.D. DATE: 04/13/2017 DATE OF : 1935 PROCEDURE Fluoroscopically guided neurolytic substance bilateral sacroiliac joints (3% Phenol). PROCEDURE NOTE History and physical was completed and signed. Consent was signed. Procedure site was marked. Medications were listed and reconciled. Pain score was recorded. Allergies were noted. Timeout was taken. Fluoroscopy time was recorded where applicable. Sedation was administered or directed by Dr. Meeks. The patient was given oxygen. The patient was monitored by a registered nurse. Total procedure time was greater than 15 minutes. An IV was started, blood pressure cuff, pulse oximeter and EKG were applied. The patient was placed in the prone position on a Pasquale table, sedated with small amounts of propofol titrated to effect. Vital signs were monitored and remained stable throughout the procedure. The sacral area was prepped with alcohol and 10% Betadine solution, draped with sterile drapes. Fluoroscopy was used to visualize the posterior joint line of the bilateral sacroiliac joints. Separate sterile 5-inch, 22-gauge spinal needles were advanced into these joints under fluoroscopic guidance. There was negative aspiration for blood or any other type of fluid and at each location the patient was given 2 mL of 3% Phenol. Following this the patient was taken to the recovery room with stable vital signs, neurologically intact. He will be evaluated immediately and with follow-up to determine if he has a subjective decrease in his usual pain and a corresponding objective increase in his functional capabilities. W. MD HEIDI Kenny/NOLAN /10:04 AM /8:58 AM
== END | disposition home or self-care (01) ==
LOC: PHSDC 08:14
PROVIDERS: ATTEND Pain Medicine Interventional Pain Medicine
DX: M54.5 Low back pain (principal); Z88.1 Allergy status to other antibiotic agents; Z88.8 Allergy status to other drugs, medicaments and biological substances
CPT/HCPCS: 64640; 99152

== ENCOUNTER 2017-04-14 13:17 | Emergency (ER) | payer MEDICARE, BC ==
[~2017-04-14] VITALS: Ht 167.6 cm; Wt 82.0 kg
[~2017-04-14 13:17] MED LIST changes: -CLIN1CAP5 PO; -HYDR-3516 PO; -MACR100C3 PO; -OXYC-259 PO; -PROPOFOL 200 MG/20 ML AMP IV ONE; -SODIUM CHLORIDE 0.9% 10 ML VIAL ONE
[2017-04-14 13:19] VITALS: BP 163/77; PULSE 56; RESP 16; TEMP 98.2; O2SAT 95
[2017-04-14] MEDS ORDERED: SODIUM CHLORIDE 0.9% FLUSH 10 ML FLUSH IV FLUSH PRN (14:00)
[2017-04-14] MEDS ORDERED: KETOROLAC TROMETHAMINE 30 MG/ML (IVP) VIAL IV PUSH ONE (14:00)
[2017-04-14] MEDS ORDERED: KETOROLAC TROMETHAMINE 60 MG/2 ML (IM) VIAL IM ONE (14:15)
--- NOTE | 2017-04-14 14:30 | PD ---
HPI Chief Complaint: Pain: Acute or Chronic Time Seen by Provider: 13:44 Travel History International Travel<30 days: No Contact w/Intl Traveler<30days: No Traveled to known affect area: No History of Present Illness HPI Patient is a 81 year old male with history of chronic low back pain - reports that he does Dr. Meeks for his chronic low back pain and did have an injection yesterday. Patient reports that he felt better after his injection and then had return of pain, reports that he has been taking his hydrocodone relief of symptoms. Patient reports that he continues to have low back pain despite the injections. Patient reports that he is angry as he has to pay for these injections and he is still having low back pain. Patient reports that he had to take 2 doses of hydrocodones today for relief of symptoms. Patient denies any new traumas or falls or injuries. Patient reports that he currently does not have any low back pain. Patient requests that I talk to his doctor, Dr. Meeks to develop a plan of care for treatment of his low back pain. PFSH Past Medical History AAA: Yes Arthritis: Yes Asthma: Yes Atrial Fibrillation: Yes Blood Disorders: No Anxiety: Yes Cancer: No Cardiovascular Problems: Yes (htn on meds) High Cholesterol: Yes COPD: Yes Dementia: Yes Diabetes: No Diminished Hearing: No Endocrine: No Gastrointestinal Disorders: Yes (IBS) Glaucoma: No Genitourinary: Yes (ENLARGED PROSTATE) Hepatitis: No Hiatal Hernia: No Hypertension: Yes Immune Disorder: No Implanted Vascular Access Dvce: No Medical other: Yes (C/O TINGLING TO TOES RIGHT >LEFT) Musculoskeletal: Yes Neurologic: Yes Respiratory: Yes (ASTHMA, COPD) Immunizations Current: Yes Thyroid Disease: No PNEUMOCCOCAL Vaccine (Year): 2 Past Surgical History Abdominal Surgery: No AICD: No Cardiac Surgery: No Ear Surgery: No Endocrine Surgery: No Eye Surgery: No Genitourinary Surgery: No Gynecologic Surgery: No Joint Replacement: Yes (RIGHT HIP) Neurologic Surgery: Yes (LUMBAR LAMINECTOMY, BACK SURGERY FOR DROP FOOT) Oral Surgery: No Pacemaker: No Thoracic Surgery: No Other Surgery: Yes (RIGHT UPPER LEG STENT) Social History Alcohol Use: No Tobacco Use: No (QUIT 30 YEARS AGO ) Substance Use: No Allergies-Medications (Allergen,Severity, Reaction): Coded Allergies: Amoxicillin (Verified Allergy, Severe, Hives, 04/14/17) Ativan (Verified Allergy, Severe, Confusion, 04/14/17) Fentanyl (Verified Allergy, Severe, CONFUSION, 04/14/17) Cipro (Verified Allergy, Mild, GI SYMPTOMS, 04/14/17) Percocet (Verified Allergy, Unknown, PT DOES NOT KNOW WHAT REACTION IS, 04/14/17) UNKNOWN REACTION Lortab (Verified Adverse Reaction, Intermediate, NAUSEA AND CONSTIPATION, 04/14/17) Reported Meds & Prescriptions Reported Meds & Active Scripts Active Reported Refresh Opth Drops (Polyvinyl Alcohol-Povidone Opth Drops) 1.4-0.6% Drops 1-2 Drop EACH EYE PRN PRN Neurontin (Gabapentin) 300 Mg Cap 900 Mg PO BID Hydrocodone-Acetaminophen 10-325 mg Tab 1 Tab PO Q4H PRN Memantine 10 Mg Tab 10 Mg PO BID Amitriptyline (Amitriptyline HCl) 50 Mg Tab 50 Mg PO HS Uribel (Lmycdlyrjxr-Ldfbb-Xammtzvyx Blue) 1 Cap Lyrica (Pregabalin) 50 Mg Cap 50 Mg PO BID Stiolto Respimat Inh (Tiotropium-Olodaterol Inh) 2.5-2.5 Mcg/Act Aero 2 Puff INH DAILY Aricept (Donepezil) 23 Mg Tab 23 Mg PO HS Do not split, crushed or chewed. Flomax (Tamsulosin HCl) 0.4 Mg Cap 0.8 Mg PO HS Baclofen 10 Mg Tab 10 Mg PO BID Toprol XL (Metoprolol Succinate) 100 Mg Tab 100 Mg PO DAILY Review of Systems General / Constitutional: No: Fever Eyes: No: Visual changes HENT: No: Headaches Cardiovascular: No: Chest Pain or Discomfort Respiratory: No: Shortness of Breath Gastrointestinal: No: Abdominal Pain Genitourinary: No: Dysuria Musculoskeletal: Positive: Pain (low back pain) Skin: No Rash Neurologic: No: Weakness Psychiatric: No: Depression Endocrine: No: Polydipsia Hematologic/Lymphatic: No: Easy Bruising Physical Exam Narrative GENERAL: NAD SKIN: Focused skin assessment warm/dry. HEAD: Atraumatic. Normocephalic. EYES: Pupils equal and round. No scleral icterus. No injection or drainage. ENT: No nasal bleeding or discharge. Mucous membranes pink and moist. NECK: Trachea midline. No JVD. CARDIOVASCULAR: Regular rate and rhythm. No murmur appreciated. RESPIRATORY: No accessory muscle use. Clear to auscultation. Breath sounds equal bilaterally. GASTROINTESTINAL: Abdomen soft, non-tender, nondistended. Hepatic and splenic margins not palpable. MUSCULOSKELETAL: No obvious deformities. No clubbing. No cyanosis. No edema. Patient with paraspinal lumbar tenderness, patient ambulating in the emergency with normal gait, no saddle anesthesia NEUROLOGICAL: Awake and alert. No obvious cranial nerve deficits. Motor grossly within normal limits. Normal speech. PSYCHIATRIC: Appropriate mood and affect; insight and judgment normal. Data Data Last Documented VS Vital Signs Date Time Temp Pulse Resp B/P Pulse Ox O2 Delivery O2 Flow Rate FiO2 04/14/17 13:19 98.2 56 16 163/77 95 Orders Sodium Chloride 0.9% Flush (Ns Flush) (04/14/17 14:00) Ketorolac Inj (Toradol Inj) (04/14/17 14:00) Ketorolac Inj (Toradol Inj) (04/14/17 14:15) Oxycodone (Roxicodone) (04/14/17 14:15) MDM Medical Decision Making Medical Screen Exam Complete: Yes Emergency Medical Condition: Yes Interpretation(s) Vital Signs Date Time Temp Pulse Resp B/P Pulse Ox O2 Delivery O2 Flow Rate FiO2 04/14/17 13:19 98.2 56 16 163/77 95 Differential Diagnosis Chronic low back pain Narrative Course 81-year-old male with history of chronic back pain, 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 Patient with no pain at this time, no saddle anesthesia, walking in the ER with normal gait reports that pain is intermittent in nature. Patient had a "pain injection" yesterday and is upset that he still has back pain. Request that I call Dr. Meeks to develop a plan of care for him. Patient reports that he is comfortable at this time with no back pain. I did talk to Dr. Meeks, patient has had an extensive workup for his low back pain including an MRI of his lumbar spine on April 05, 2016 which showed advanced degenerative disc disease in the lumbar spine between L2 - L5. Patient has known degenerative disc disease. Dr. Meeks will have his office staff call him in the morning and will follow-up in his office tomorrow afternoon. This was reviewed with patient who is agreeable to plan of care Diagnosis Primary Impression: Acute exacerbation of chronic low back pain Patient Instructions: General Instructions, Narcotic given in the ED Additional Instructions: Please follow up with Dr. Meeks in the office tomorrow as discussed Disposition: 01 DISCHARGE HOME Condition: Stable Chaparrita Meraz DO Apr 14, 2017 14:30
[2017-04-14 15:07] VITALS: BP 158/76
== END 2017-04-14 15:15 | disposition home or self-care (01) ==
LOC: PHED 13:17
DX: M54.5 Low back pain (principal); G89.29 Other chronic pain
CPT/HCPCS: 96372; 99284; J1885

== ENCOUNTER → 2017-04-19 | Outpatient (CLI) | payer MEDICARE, BC ==
[~2017-04-19] MED LIST changes: +CLIN1CAP5 PO; +HYDR-3516 PO; +OXYC-259 PO
[2017-04-19 11:17] LABS: HEMATOCRIT 39.5 % (39.0-51.0); MEAN CELL VOLUME 90.3 FL (80.0-100.0); MEAN CORPUSCULAR HEMOGLOBIN 31.1 PG (27.0-34.0); MEAN CORPUSCULAR HGB CONC 34.4 % (32.0-36.0); PLATELET COUNT 144 TH/MM3 (150-450); RED BLOOD COUNT 4.37 MIL/MM3 (4.50-5.90); RED CELL DISTRIBUTION WIDTH 14.1 % (11.6-17.2); REVIEW FLAG FINAL; WHITE BLOOD COUNT 6.9 TH/MM3 (4.0-11.0)
[2017-04-19 11:52] LABS: ANION GAP 9 MEQ/L (5-15); AST (GOT) 20 U/L (15-37); BICARBONATE 27.9 MEQ/L (21.0-32.0); BLOOD UREA NITROGEN 10 MG/DL (7-18); CHLORIDE 102 MEQ/L (98-107); GLOMERULAR FILTRATION RATE 95 ML/MIN (>89); GLUCOSE,FASTING 101 MG/DL (74-99); POTASSIUM 3.7 MEQ/L (3.5-5.1); SODIUM (NA) 139 MEQ/L (136-145)
[2017-04-19 11:57] LABS: ALKALINE PHOSPHATASE 55 U/L (45-117); ALT (GPT) 12 U/L (12-78); HDL CHOLESTEROL 69.2 MG/DL (40.0-60.0); LDL CHOLESTEROL 137 MG/DL (0-99); LDL CHOLESTEROL DIRECT 125 MG/DL (0-99); TOTAL BILIRUBIN ADULT 0.6 MG/DL (0.2-1.0)
[2017-04-19 16:38] LABS: HEMOGLOBIN A1b 0.9 %; HEMOGLOBIN Ao 86.1 %; HEMOGLOBIN F 0.8 %; HEMOGLOBIN LA1C 1.9 %; HEMOGLOBIN P3 3.5 %
== END ==
LOC: PLAB 09:30
PROVIDERS: ATTEND Family Medicine
DX: E78.4 Other hyperlipidemia (principal); I10 Essential (primary) hypertension; R73.01 Impaired fasting glucose; G30.9 Alzheimer's disease, unspecified; J44.9 Chronic obstructive pulmonary disease, unspecified; I73.9 Peripheral vascular disease, unspecified; M19.90 Unspecified osteoarthritis, unspecified site
CPT/HCPCS: 36415; 80053; 80061; 83036; 83721; 85027

== ENCOUNTER 2017-04-20 10:33 | Emergency (ER) | payer MEDICARE, BC ==
[~2017-04-20] VITALS: Ht 167.6 cm; Wt 80.0 kg
[~2017-04-20 10:33] MED LIST changes: -CLIN1CAP5 PO; -HYDR-3516 PO; -OXYC-259 PO
[2017-04-20 10:56] VITALS: BP 175/78; PULSE 64; RESP 20; TEMP 97.5; O2SAT 97
[2017-04-20] MEDS ORDERED: ORPHENADRINE INJ 60 MG/2 ML AMP IM ONE (11:00)
[2017-04-20] MEDS ORDERED: CLINDAMYCIN INJ 600 MG in SODIUM CHLORIDE 0.9% INJ 100 ML IV ONE (11:00)
[2017-04-20] MEDS ORDERED: MORPHINE SULFATE 4 MG/ML INJ IV PUSH ONE (11:00)
[2017-04-20] MEDS ORDERED: KETOROLAC TROMETHAMINE 30 MG/ML (IVP) VIAL IVP ONE (11:00)
[2017-04-20] MEDS ORDERED: LIDOCAINE HCL 1% 30 ML VIAL INFIL ONE (11:00)
[2017-04-20 11:41] LABS: AUTOMATED NEUTROPHIL # 4.4 TH/MM3 (1.8-7.7); BASOPHIL % 0.6 % (0.0-2.0); EOSINOPHIL % 0.3 % (0.0-4.0); HEMATOCRIT 40.1 % (39.0-51.0); HEMO FLAGS DIFF FINAL; LYMPH % 16.6 % (9.0-44.0); MEAN CELL VOLUME 89.5 FL (80.0-100.0); MEAN CORPUSCULAR HEMOGLOBIN 30.4 PG (27.0-34.0); MONO % 10.7 % (0.0-8.0); NEUT % 71.8 % (16.0-70.0); PLATELET COUNT 155 TH/MM3 (150-450); RED BLOOD COUNT 4.48 MIL/MM3 (4.50-5.90); RED CELL DISTRIBUTION WIDTH 13.7 % (11.6-17.2); WHITE BLOOD COUNT 6.1 TH/MM3 (4.0-11.0)
[2017-04-20] MEDS ORDERED: LIDOCAINE HCL 1% PF 30 ML VIAL ONE (11:43)
[2017-04-20 11:46] LABS: BLOOD, URINE NEG (NEG); COMMENT (UR) CULTURE INDICATED; CULTURE IF INDICATED CULTURE INDICATED; GLUCOSE,URINE NEG (NEG); KETONE, URINE 10 mg/dL (NEG); NITRITE,URINE NEG (NEG); PH, URINE 6.5 (5.0-8.5); SQUAMOUS EPITHELIAL CELL URINE <1 /hpf (0-5)
[2017-04-20 11:49] LABS: URINE COLOR LIGHT-GREEN (YELLW/STRAW)
[2017-04-20 12:09] LABS: BICARBONATE 28.6 MEQ/L (21.0-32.0); POTASSIUM 3.7 MEQ/L (3.5-5.1)
[2017-04-20] MEDS ORDERED: CLIN1CAP5 PO (13:08)
[2017-04-20] MEDS ORDERED: HYDR-3516 PO (13:08)
--- NOTE | 2017-04-20 13:09 | PD ---
HPI Chief Complaint: Pain: Acute or Chronic Time Seen by Provider: 10:49 Travel History International Travel<30 days: No Contact w/Intl Traveler<30days: No Traveled to known affect area: No History of Present Illness HPI 81-year-old male came to the emergency room brought by EMS with history of back pain that is progressively getting worse for past many months. Patient's is here with him as well and says that this is getting thoroughly worked up by Dr. Stubbs from neurology with MRI and CT scan. Usually in spite of the back pain he has been functional and has been able to drive. But today he took her to her doctor's office and was unable to get up and drive her back. They had to call ambulance for him to be brought in here. Patient is here and says his back hurts and it radiates down his left leg. His pointed at his left elbow and said that it has been red and swollen for past couple days. He has been having cold sweats at home. No bowel or bladder incontinence. [facility] Past Medical History Narrative Medical List of his past medical, surgical, social and family history was reviewed from the nursing note. AAA: Yes Arthritis: Yes Asthma: Yes Atrial Fibrillation: Yes Blood Disorders: No Anxiety: Yes Cancer: No Cardiovascular Problems: Yes (htn on meds) High Cholesterol: Yes COPD: Yes Dementia: Yes Diabetes: No Diminished Hearing: No Endocrine: No Gastrointestinal Disorders: Yes (IBS) Glaucoma: No Genitourinary: Yes (ENLARGED PROSTATE) Hepatitis: No Hiatal Hernia: No Hypertension: Yes Immune Disorder: No Implanted Vascular Access Dvce: No Musculoskeletal: Yes Neurologic: Yes Respiratory: Yes (ASTHMA, COPD) Immunizations Current: Yes Thyroid Disease: No PNEUMOCCOCAL Vaccine (Year): 2 Past Surgical History Abdominal Surgery: No AICD: No Cardiac Surgery: No Ear Surgery: No Endocrine Surgery: No Eye Surgery: No Genitourinary Surgery: No Gynecologic Surgery: No Joint Replacement: Yes (RIGHT HIP) Neurologic Surgery: Yes (LUMBAR LAMINECTOMY, BACK SURGERY FOR DROP FOOT) Oral Surgery: No Pacemaker: No Thoracic Surgery: No Other Surgery: Yes (RIGHT UPPER LEG STENT) Social History Alcohol Use: No Tobacco Use: No (QUIT 30 YEARS AGO ) Substance Use: No Allergies-Medications (Allergen,Severity, Reaction): Coded Allergies: Amoxicillin (Verified Allergy, Severe, Hives, 04/15/17) Ativan (Verified Allergy, Severe, Confusion, 04/15/17) Fentanyl (Verified Allergy, Severe, CONFUSION, 04/15/17) Cipro (Verified Allergy, Mild, GI SYMPTOMS, 04/15/17) Latex (Verified Allergy, Unknown, 04/20/17) Percocet (Verified Allergy, Unknown, PT DOES NOT KNOW WHAT REACTION IS, 04/15/17) UNKNOWN REACTION Lortab (Verified Adverse Reaction, Intermediate, NAUSEA AND CONSTIPATION, 04/15/17) Comments List of his allergies reviewed from the nursing note. Reported Meds & Prescriptions Reported Meds & Active Scripts Active Hydrocodone-Acetaminophen 5-325 mg Tab 1 Tab PO Q6H PRN Clindamycin (Clindamycin HCl) 150 Mg Cap 150 Mg PO Q6H 10 Days Reported Refresh Opth Drops (Polyvinyl Alcohol-Povidone Opth Drops) 1.4-0.6% Drops 1-2 Drop EACH EYE PRN PRN Neurontin (Gabapentin) 300 Mg Cap 900 Mg PO BID Hydrocodone-Acetaminophen 10-325 mg Tab 1 Tab PO Q4H PRN Memantine 10 Mg Tab 10 Mg PO BID Amitriptyline (Amitriptyline HCl) 50 Mg Tab 50 Mg PO HS Uribel (Yagmcedxeht-Zhplq-Eqruhjgmw Blue) 1 Cap Lyrica (Pregabalin) 50 Mg Cap 50 Mg PO BID Stiolto Respimat Inh (Tiotropium-Olodaterol Inh) 2.5-2.5 Mcg/Act Aero 2 Puff INH DAILY Aricept (Donepezil) 23 Mg Tab 23 Mg PO HS Do not split, crushed or chewed. Flomax (Tamsulosin HCl) 0.4 Mg Cap 0.8 Mg PO HS Baclofen 10 Mg Tab 10 Mg PO BID Toprol XL (Metoprolol Succinate) 100 Mg Tab 100 Mg PO DAILY Narrative Medication List of his home medications reviewed from the nursing note. Review of Systems Except as stated in HPI: all other systems reviewed are Neg Physical Exam Narrative GENERAL: Awake, alert, elderly, moderate distress SKIN: Focused skin assessment warm/dry. Left elbow skin overlying the olecranon process is erythematous and fluctuant. There is swelling but full range of motion at the elbow joint. HEAD: Atraumatic. Normocephalic. EYES: Pupils equal and round. No scleral icterus. No injection or drainage. ENT: No nasal bleeding or discharge. Mucous membranes pink and moist. NECK: Trachea midline. No JVD. CARDIOVASCULAR: Regular rate and rhythm. No murmur appreciated. RESPIRATORY: No accessory muscle use. Clear to auscultation. Breath sounds equal bilaterally. GASTROINTESTINAL: Abdomen soft, non-tender, nondistended. Hepatic and splenic margins not palpable. MUSCULOSKELETAL: No obvious deformities. No clubbing. No cyanosis. No edema. SLR test negative NEUROLOGICAL: Awake and alert. No obvious cranial nerve deficits. Motor grossly within normal limits. Normal speech. PSYCHIATRIC: Appropriate mood and affect; insight and judgment normal. Data Data Last Documented VS Vital Signs Date Time Temp Pulse Resp B/P Pulse Ox O2 Delivery O2 Flow Rate FiO2 04/20/17 10:56 97.5 64 20 175/78 97 Orders Basic Metabolic Panel (Bmp) (04/20/17 10:49) Complete Blood Count With Diff (04/20/17 10:49) Blood Culture (04/20/17 10:49) Wound Culture And Gram Stain (04/20/17 10:49) Ketorolac Inj (Toradol Inj) (04/20/17 11:00) Clindamycin Inj (Cleocin Inj) (04/20/17 11:00) Orphenadrine Inj (Norflex Inj) (04/20/17 11:00) Morphine Inj (Morphine Inj) (04/20/17 11:00) Lidocaine 1% Inj (Xylocaine 1% Inj) (04/20/17 11:00) Urinalysis - C+S If Indicated (04/20/17 10:54) Lidocaine Pf 1% Inj (Xylocaine-Mpf 1% In (04/20/17 11:43) Urine Culture (04/20/17 11:30) Labs Laboratory Tests Test 04/20/17 11:30 White Blood Count 6.1 TH/MM3 Red Blood Count 4.48 MIL/MM3 Hemoglobin 13.6 GM/DL Hematocrit 40.1 % Mean Corpuscular Volume 89.5 FL Mean Corpuscular Hemoglobin 30.4 PG Mean Corpuscular Hemoglobin 34.0 % Concent Red Cell Distribution Width 13.7 % Platelet Count 155 TH/MM3 Mean Platelet Volume 8.6 FL Neutrophils (%) (Auto) 71.8 % Lymphocytes (%) (Auto) 16.6 % Monocytes (%) (Auto) 10.7 % Eosinophils (%) (Auto) 0.3 % Basophils (%) (Auto) 0.6 % Neutrophils # (Auto) 4.4 TH/MM3 Lymphocytes # (Auto) 1.0 TH/MM3 Monocytes # (Auto) 0.7 TH/MM3 Eosinophils # (Auto) 0.0 TH/MM3 Basophils # (Auto) 0.0 TH/MM3 CBC Comment DIFF FINAL Differential Comment Urine Color LIGHT-GREEN Urine Turbidity HAZY Urine pH 6.5 Urine Specific [place] 1.025 Urine Protein TRACE mg/dL Urine Glucose (UA) NEG mg/dL Urine Ketones 10 mg/dL Urine Occult Blood NEG Urine Nitrite NEG Urine Bilirubin NEG Urine Urobilinogen LESS THAN 2.0 MG/DL Urine Leukocyte Esterase SMALL Urine RBC 2 /hpf Urine WBC 13 /hpf Urine Squamous Epithelial <1 /hpf Cells Microscopic Urinalysis Comment CULTURE INDICATED Sodium Level 139 MEQ/L Potassium Level 3.7 MEQ/L Chloride Level 103 MEQ/L Carbon Dioxide Level 28.6 MEQ/L Anion Gap 7 MEQ/L Blood Urea Nitrogen 11 MG/DL Creatinine 0.83 MG/DL Estimat Glomerular Filtration 89 ML/MIN Rate Random Glucose 101 MG/DL Calcium Level 9.1 MG/DL [facility] Medical Decision Making Medical Screen Exam Complete: Yes Emergency Medical Condition: Yes Medical Record Reviewed: Yes Differential Diagnosis Lumbar radiculopathy, olecranon bursitis, cellulitis, infected bursitis, UTI Narrative Course 1:03 PM blood test results of back and within acceptable limits. UA is positive for UTI. Patient was given IV clindamycin for infected bursitis. I just finished tapping the bursa. Please refer to my procedure note. Patient will be discharged home on pain medication prescription and antibiotic prescription. Upon reassessment patient said pain is little better. I will give him IV Toradol. Procedures Procedure Narrative Left olecranon bursa aspiration: The area was cleaned with Betadine and gauze 3. 2 ML's of 1% lidocaine was infiltrated to achieve local anesthesia. 20- gauge needle attached to a 20 cc syringe was inserted into the bursa and serous sanguinous fluid aspirated. Total of 3 ML of fluid was aspirated. Fluid was sent for culture and Gram stain. Pressure was held until bleeding stopped. The area was wrapped with dry gauze and Kerlix. Patient tolerated the procedure well. EKG Prior to Arrival: No Diagnosis Primary Impression: Lumbar radiculopathy Additional Impressions: Bursitis due to bacterial infection Cellulitis Qualified Code: L03.114 - Cellulitis of left upper extremity Referrals: Primary Care Physician 2 days Additional Instructions: Please return to the ER if the condition worsens or any other new concerns. Otherwise follow-up with your primary care in couple days. Take the medication as per the prescription direction. He can take the dressing down tomorrow. You should not be driving while taking the pain medication as it'll make you groggy. Med/Other Pt SpecificInfo: Prescription(s) given Scripts Hydrocodone-Acetaminophen 5-325 mg Tab1 Tab PO Q6H PRN (PAIN) #15 TAB Ref 0 Prov:Giovani Morales MD 04/20/17 Clindamycin 150 Mg [id number] Mg PO Q6H 10 Days Ref 0 Prov:Giovani Morales MD 04/20/17 Disposition: 01 DISCHARGE HOME Condition: Stable Giovani Morales MD Apr 20, 2017 13:09
== END 2017-04-20 13:48 | disposition home or self-care (01) ==
LOC: NEPD 10:33
DX: M54.16 Radiculopathy, lumbar region (principal); M70.32 Other bursitis of elbow, left elbow; L03.114 Cellulitis of left upper limb; B95.61 Methicillin susceptible Staphylococcus aureus infection as the cause of diseases classified elsewhere; N39.0 Urinary tract infection, site not specified; I10 Essential (primary) hypertension; F03.90 Unspecified dementia, unspecified severity, without behavioral disturbance, psychotic disturbance, mood disturbance, and anxiety; E78.00 Pure hypercholesterolemia, unspecified; Z86.79 Personal history of other diseases of the circulatory system; Z87.39 Personal history of other diseases of the musculoskeletal system and connective tissue; Z87.09 Personal history of other diseases of the respiratory system; Z86.59 Personal history of other mental and behavioral disorders; Z87.19 Personal history of other diseases of the digestive system; Z87.438 Personal history of other diseases of male genital organs; Z86.69 Personal history of other diseases of the nervous system and sense organs
CPT/HCPCS: 20605; 80048; 81001; 85025; 87040; 87070; 87077; 87086; 87186; 96365; 96372; 96375; 99284; J1885; J2270; J2360

== ENCOUNTER 2017-04-30 09:36 | Emergency (ER) | payer MEDICARE, BC ==
[~2017-04-30] VITALS: Ht 167.6 cm; Wt 77.0 kg
[~2017-04-30 09:36] MED LIST changes: +CLIN1CAP5 PO; +HYDR-3516 PO
[2017-04-30 09:42] VITALS: BP 103/59; PULSE 56; RESP 16; TEMP 97.6; O2SAT 95
[2017-04-30] MEDS ORDERED: OXYC-259 PO (09:52)
--- NOTE | 2017-04-30 10:13 | PD ---
HPI Chief Complaint: Fall Time Seen by Provider: 09:46 Travel History International Travel<30 days: No Contact w/Intl Traveler<30days: No Traveled to known affect area: No History of Present Illness HPI Thin 81-year-old man who presents to the emergency department complaining of right sided chest wall pain after he fell against a sink 4 days ago. He is on chronic opiates. He states the pain is getting worse and is not helped by his home opioids. No trouble breathing. No abdominal pain. States he slipped in the bathroom. No syncope or lightheadedness. History Past Medical History Narrative Medical A. fib Hypertension hyperlipidemia COPD Dementia IBS History of AAA Enlarged prostate Influenza Vaccination: Yes PNEUMOCCOCAL Vaccine (Year): 2 Social History Alcohol Use: No Tobacco Use: No (QUIT 30 YEARS AGO ) Allergies-Medications (Allergen,Severity, Reaction): Coded Allergies: Amoxicillin (Verified Allergy, Severe, Hives, 04/30/17) Ativan (Verified Allergy, Severe, Confusion, 04/30/17) Fentanyl (Verified Allergy, Severe, CONFUSION, 04/30/17) Cipro (Verified Allergy, Mild, GI SYMPTOMS, 04/30/17) Latex (Verified Allergy, Unknown, 04/30/17) Percocet (Verified Allergy, Unknown, PT DOES NOT KNOW WHAT REACTION IS, ) UNKNOWN REACTION Lortab (Verified Adverse Reaction, Intermediate, NAUSEA AND CONSTIPATION, 04/30/17) Reported Meds & Prescriptions Reported Meds & Active Scripts Active Hydrocodone-Acetaminophen 5-325 mg Tab 1 Tab PO Q6H PRN Clindamycin (Clindamycin HCl) 150 Mg Cap 150 Mg PO Q6H 10 Days Reported Oxycontin (Oxycodone HCl) 10 Mg Tab 10 Mg PO Q12HR Refresh Opth Drops (Polyvinyl Alcohol-Povidone Opth Drops) 1.4-0.6% Drops 1-2 Drop EACH EYE PRN PRN Neurontin (Gabapentin) 300 Mg Cap 900 Mg PO BID Memantine 10 Mg Tab 10 Mg PO BID Amitriptyline (Amitriptyline HCl) 50 Mg Tab 50 Mg PO HS Uribel (Foketkpfybt-Lwkbn-Aeuntacwp Blue) 1 Cap Lyrica (Pregabalin) 50 Mg Cap 50 Mg PO BID Stiolto Respimat Inh (Tiotropium-Olodaterol Inh) 2.5-2.5 Mcg/Act Aero 2 Puff INH DAILY Aricept (Donepezil) 23 Mg Tab 23 Mg PO HS Do not split, crushed or chewed. Flomax (Tamsulosin HCl) 0.4 Mg Cap 0.8 Mg PO HS Baclofen 10 Mg Tab 10 Mg PO BID Toprol XL (Metoprolol Succinate) 100 Mg Tab 100 Mg PO DAILY Review of Systems Except as stated in HPI: all other systems reviewed are Neg Physical Exam Narrative GENERAL: Well-appearing 81-year-old man, no acute distress. SKIN: Focused skin assessment warm/dry. HEAD: Atraumatic. Normocephalic. NECK: Trachea midline. No JVD. CARDIOVASCULAR: Regular rate and rhythm. No murmur appreciated. RESPIRATORY: No accessory muscle use. Clear to auscultation. Breath sounds equal bilaterally. GASTROINTESTINAL: Abdomen soft, non-tender, nondistended. Hepatic and splenic margins not palpable. MUSCULOSKELETAL: No obvious deformities. No significant chest wall tenderness or bruising. NEUROLOGICAL: Awake and alert. No obvious cranial nerve deficits. Motor grossly within normal limits. Normal speech. PSYCHIATRIC: Appropriate mood and affect; insight and judgment normal. Data Data Last Documented VS Vital Signs Date Time Temp Pulse Resp B/P Pulse Ox O2 Delivery O2 Flow Rate FiO2 04/30/17 09:42 97.6 56 16 103/59 95 Orders Chest, Pa & Lat (04/30/17 ) [facility] Medical Decision Making Medical Screen Exam Complete: Yes Emergency Medical Condition: Yes Interpretation(s) My review of chest x-ray: Negative Differential Diagnosis Chest wall pain, contusion, fracture, other Narrative Course Medical decision making INITIAL: This 81-year-old man who presents to the emergency department complaining of some right sided chest wall pain after he fell and was 4 days ago. He is on chronic opiates at home. He likely has some hyperalgesia. Possibly cracked rib contusion other he doesn't have any significant injury on his chest. We'll check x-ray, recommend continue pain medicines and outpatient follow-up. Diagnosis Primary Impression: Contusion, chest wall Additional Instructions: Follow-up with your primary doctor in the next 2-4 days. Continue current medications. Med/Other Pt SpecificInfo: No Change to Meds Disposition: 01 DISCHARGE HOME Condition: Stable Enzo Banda MD Apr 30, 2017 10:13
--- NOTE | 2017-04-30 10:42 | RADRPT ---
EXAM DATE/TIME: 04/30/2017 10:15 [place] COMPARISON: CHEST SINGLE AP, February 22, 2017, 20:21. INDICATIONS : Right side rib pain MEDICAL HISTORY : None. SURGICAL HISTORY : None. ENCOUNTER: Initial ACUITY: 2 weeks PAIN SCORE: 10/10 LOCATION: Right lateral chest FINDINGS: PA and lateral views of the chest demonstrate the lungs to be symmetrically aerated without evidence of mass, infiltrate or effusion. The cardiomediastinal contours are unremarkable. Osseous appear gr ossly intact. If symptoms persist, rib detail series could be performed. CONCLUSION: 1. No definite abnormality to explain the patient's right-sided chest pain identified. If symptoms pe rsist, rib detail series to more thoroughly evaluate for fracture could be performed. No pneumothorax is seen. Jackson Nunes MD on April 30, 2017 at 10:39 Board Certified Radiologist. This report was verified electronically.
== END 2017-04-30 10:51 | disposition home or self-care (01) ==
LOC: PHED 09:36
DX: S20.211A Contusion of right front wall of thorax, initial encounter (principal); I48.91 Unspecified atrial fibrillation; I10 Essential (primary) hypertension; E78.5 Hyperlipidemia, unspecified; F03.90 Unspecified dementia, unspecified severity, without behavioral disturbance, psychotic disturbance, mood disturbance, and anxiety; Z87.09 Personal history of other diseases of the respiratory system; Z87.19 Personal history of other diseases of the digestive system; Z86.79 Personal history of other diseases of the circulatory system; W01.198A Fall on same level from slipping, tripping and stumbling with subsequent striking against other object, initial encounter; Y92.002 Bathroom of unspecified non-institutional (private) residence as the place of occurrence of the external cause
CPT/HCPCS: 71020; 99283

== ENCOUNTER 2017-05-30 14:45 | Emergency (ER) | payer MEDICARE, BC ==
[~2017-05-30] VITALS: Ht 157.5 cm; Wt 76.0 kg
[~2017-05-30 14:45] MED LIST changes: -HYDR-3583 PO; +OXYC-259 PO; -URIB118C; +URIB118C PO
[2017-05-30 14:51] VITALS: BP 153/65; PULSE 61; RESP 14; TEMP 97.9; O2SAT 94
[2017-05-30] MEDS ORDERED: OXYC-426 PO (15:58)
--- NOTE | 2017-05-30 16:03 | PD ---
HPI Chief Complaint: Complaint Time Seen by Provider: 15:53 Travel History International Travel<30 days: No Contact w/Intl Traveler<30days: No Traveled to known affect area: No History of Present Illness HPI 81-year-old male complains of dysuria and frequency. Patient states that the symptoms started 2 days ago. Patient denies any fever chills. Patient states that he has some low abdominal discomfort for the past 2 days also. Patient denies any fever. Patient denies any nausea vomiting diarrhea. Patient has history of COPD, hypertension, atrial fibrillation, BPH, osteoarthritis, sciatica. PFSH Past Medical History AAA: Yes Arthritis: Yes Asthma: Yes Atrial Fibrillation: Yes Blood Disorders: No Anxiety: Yes Cancer: No Cardiovascular Problems: Yes (htn on meds) High Cholesterol: Yes COPD: Yes Dementia: Yes Diabetes: No Diminished Hearing: No Endocrine: No Gastrointestinal Disorders: Yes (IBS) Glaucoma: No Genitourinary: Yes (ENLARGED PROSTATE) Hepatitis: No Hiatal Hernia: No Hypertension: Yes Immune Disorder: No Implanted Vascular Access Dvce: No Medical other: Yes (C/O TINGLING TO TOES RIGHT >LEFT) Musculoskeletal: Yes Neurologic: Yes Respiratory: Yes (COPD) Immunizations Current: Yes Thyroid Disease: No Influenza Vaccination: Yes PNEUMOCCOCAL Vaccine (Year): 2 Past Surgical History Abdominal Surgery: No AICD: No Cardiac Surgery: No Ear Surgery: No Endocrine Surgery: No Eye Surgery: No Genitourinary Surgery: No Gynecologic Surgery: No Joint Replacement: Yes (RIGHT HIP) Neurologic Surgery: Yes (LUMBAR LAMINECTOMY, BACK SURGERY FOR DROP FOOT) Oral Surgery: No Pacemaker: No Thoracic Surgery: No Other Surgery: Yes (RIGHT UPPER LEG STENT) Social History Alcohol Use: No Tobacco Use: No (QUIT ) Substance Use: No Allergies-Medications (Allergen,Severity, Reaction): Coded Allergies: Amoxicillin (Verified Allergy, Severe, Hives, 05/30/17) Ativan (Verified Allergy, Severe, Confusion, 05/30/17) Fentanyl (Verified Allergy, Severe, CONFUSION, 05/30/17) Cipro (Verified Allergy, Mild, GI SYMPTOMS, 05/30/17) Latex (Verified Allergy, Unknown, 05/30/17) Percocet (Verified Allergy, Unknown, PT DOES NOT KNOW WHAT REACTION IS, ) UNKNOWN REACTION Lortab (Verified Adverse Reaction, Intermediate, NAUSEA AND CONSTIPATION, 05/30/17) Reported Meds & Prescriptions Reported Meds & Active Scripts Active Reported Oxycodone ER (Oxycodone HCl) 30 Mg Tab 30 Mg PO BID Refresh Opth Drops (Polyvinyl Alcohol-Povidone Opth Drops) 1.4-0.6% Drops 1-2 Drop EACH EYE PRN PRN Neurontin (Gabapentin) 300 Mg Cap 900 Mg PO BID Memantine 10 Mg Tab 10 Mg PO BID Amitriptyline (Amitriptyline HCl) 50 Mg Tab 50 Mg PO HS Uribel (Ognquchhtng-Qfjtr-Abyrcfvbc Blue) 1 Cap 118 Mg PO [id number] PRN Stiolto Respimat Inh (Tiotropium-Olodaterol Inh) 2.5-2.5 Mcg/Act Aero 2 Puff INH DAILY Aricept (Donepezil) 23 Mg Tab 23 Mg PO HS Do not split, crushed or chewed. Flomax (Tamsulosin HCl) 0.4 Mg Cap 0.8 Mg PO HS Baclofen 10 Mg Tab 10 Mg PO BID Toprol XL (Metoprolol Succinate) 100 Mg Tab 100 Mg PO DAILY Review of Systems General / Constitutional: No: Fever Eyes: No: Visual changes HENT: No: Headaches Cardiovascular: No: Chest Pain or Discomfort Respiratory: No: Shortness of Breath Gastrointestinal: No: Abdominal Pain Genitourinary: Positive: Frequency, Dysuria Musculoskeletal: No: Pain Skin: No Rash Neurologic: No: Weakness Psychiatric: No: Depression Endocrine: No: Polydipsia Hematologic/Lymphatic: No: Easy Bruising Physical Exam Narrative GENERAL: Well-nourished, well-developed patient. SKIN: Focused skin assessment warm/dry. HEAD: Normocephalic. EYES: No scleral icterus. No injection or drainage. NECK: Supple, trachea midline. No JVD or lymphadenopathy. CARDIOVASCULAR: Regular rate and rhythm without murmurs, gallops, or rubs. RESPIRATORY: Breath sounds equal bilaterally. No accessory muscle use. GASTROINTESTINAL: Abdomen soft, non-tender, nondistended. MUSCULOSKELETAL: No cyanosis, or edema. BACK: Nontender without obvious deformity. No CVA tenderness. Neurologic exam normal. Data Data Last Documented VS Vital Signs Date Time Temp Pulse Resp B/P Pulse Ox O2 Delivery O2 Flow Rate FiO2 05/30/17 14:51 97.9 61 14 153/65 94 Room Air Orders Ua Includes Microscopic (05/30/17 14:52) Labs Laboratory Tests Test 05/30/17 16:05 Urine Collection Type CLEAN CATCH Urine Color GREEN Urine Turbidity CLEAR Urine pH 6.5 Urine Specific [place] 1.013 Urine Protein NEG mg/dL Urine Glucose (UA) NEG mg/dL Urine Ketones NEG mg/dL Urine Occult Blood NEG Urine Nitrite NEG Urine Bilirubin NEG Urine Leukocyte Esterase SMALL Urine WBC 6-8 /hpf Urine Squamous Epithelial 0-5 /hpf Cells Urine Amorphous Sediment FEW Microscopic Urinalysis Comment MUCOUS PRESENT Urine Collection Time 1605 MDM Medical Decision Making Medical Screen Exam Complete: Yes Emergency Medical Condition: Yes Interpretation(s) 1653 PM. UA positive for 6-8 WBC. Differential Diagnosis Differential diagnosis including urethritis, UTI, pyelonephritis, nephrolithiasis. Narrative Course 81-year-old male with dysuria and frequency. Bactrim DS one tablet by mouth given now. Diagnosis Primary Impression: UTI (urinary tract infection) Qualified Code: N30.00 - Acute cystitis without hematuria Patient Instructions: General Instructions Additional Instructions: Bactrim DS as directed. Follow-up with urologist and personal physician. Return if worse. Med/Other Pt SpecificInfo: Prescription(s) given Scripts Sulfamethoxazole-Trimethoprim (Bactrim DS)800-160 Mg Tab1 Tab PO BID #14 TAB Prov:Tenzin Rodriguez MD 05/30/17 Disposition: 01 DISCHARGE HOME Condition: Stable Tenzin Rodriguez MD May 30, 2017 16:03
[2017-05-30 16:34] LABS: BLOOD, URINE NEG (NEG); GLUCOSE,URINE NEG (NEG); KETONE, URINE NEG (NEG); NITRITE,URINE NEG (NEG); PH, URINE 6.5 (5.0-8.5)
[2017-05-30 16:45] LABS: METHOD OF COLLECTION CLEAN CATCH; URINE COLOR GREEN (YELLW/STRAW)
[2017-05-30 16:47] LABS: COMMENT (UR) MUCOUS PRESENT; SQUAMOUS EPITHELIAL CELL URINE 0-5 /hpf (0-5)
[2017-05-30] MEDS ORDERED: BACT800T5 PO (16:56)
[2017-05-30] MEDS ORDERED: SULFAMETHOXAZOLE-TRIMETHOPRIM DS 800-160 MG TAB PO ONE (17:00)
[2017-05-30 17:23] VITALS: BP 148/68
== END 2017-05-30 17:25 | disposition home or self-care (01) ==
LOC: PHED 14:45
DX: N30.00 Acute cystitis without hematuria (principal); R10.30 Lower abdominal pain, unspecified; I10 Essential (primary) hypertension; E78.00 Pure hypercholesterolemia, unspecified; F03.90 Unspecified dementia, unspecified severity, without behavioral disturbance, psychotic disturbance, mood disturbance, and anxiety; Z86.79 Personal history of other diseases of the circulatory system; Z87.39 Personal history of other diseases of the musculoskeletal system and connective tissue; Z87.09 Personal history of other diseases of the respiratory system; Z86.59 Personal history of other mental and behavioral disorders; Z87.19 Personal history of other diseases of the digestive system; Z87.448 Personal history of other diseases of urinary system; Z86.69 Personal history of other diseases of the nervous system and sense organs
CPT/HCPCS: 81001; 99283

== ENCOUNTER 2017-06-03 05:09 | Emergency (ER) | payer MEDICARE, BC ==
[~2017-06-03 05:09] MED LIST changes: +BACT800T5 PO; -CLIN1CAP5 PO; -HYDR-3516 PO; -LYRI50CA PO; -OXYC-259 PO; +OXYC-426 PO
[2017-06-03 05:10] VITALS: BP 149/67; PULSE 60; RESP 16; TEMP 98.8; O2SAT 96
--- NOTE | 2017-06-03 05:42 | PD ---
HPI . Right-sided chest pain Chief Complaint: Abdominal Pain Time Seen by Provider: 05:31 Travel History International Travel<30 days: No Contact w/Intl Traveler<30days: No Traveled to known affect area: No History of Present Illness HPI History is obtained from the patient and his . He presents with right- sided chest pain which is been present for a couple weeks. The patient reports that the pain is so severe that he cannot sleep. They report that the pain is getting progressively worse. Pain is exacerbated by movement. His believes that the pain is temporarily relieved by a heating pad. They both report no cough, no shortness of breath, no fever. The patient is also reporting urinary frequency. PFSH Past Medical History AAA: Yes Arthritis: Yes Asthma: Yes Atrial Fibrillation: Yes Blood Disorders: No Anxiety: Yes Cancer: No Cardiovascular Problems: Yes (htn on meds) High Cholesterol: Yes COPD: Yes Dementia: Yes Diabetes: No Diminished Hearing: No Endocrine: No Gastrointestinal Disorders: Yes (IBS) Glaucoma: No Genitourinary: Yes (ENLARGED PROSTATE) Hepatitis: No Hiatal Hernia: No Hypertension: Yes Immune Disorder: No Implanted Vascular Access Dvce: No Medical other: Yes (C/O TINGLING TO TOES RIGHT >LEFT) Musculoskeletal: Yes Neurologic: Yes Respiratory: Yes (COPD) Immunizations Current: Yes Thyroid Disease: No Influenza Vaccination: Yes PNEUMOCCOCAL Vaccine (Year): 2 Past Surgical History Abdominal Surgery: No AICD: No Cardiac Surgery: No Ear Surgery: No Endocrine Surgery: No Eye Surgery: No Genitourinary Surgery: No Gynecologic Surgery: No Joint Replacement: Yes (RIGHT HIP) Neurologic Surgery: Yes (LUMBAR LAMINECTOMY, BACK SURGERY FOR DROP FOOT) Oral Surgery: No Pacemaker: No Thoracic Surgery: No Other Surgery: Yes (RIGHT UPPER LEG STENT) Social History Alcohol Use: No Tobacco Use: No (QUIT ) Substance Use: No Allergies-Medications (Allergen,Severity, Reaction): Coded Allergies: Amoxicillin (Verified Allergy, Severe, Hives, 05/30/17) Ativan (Verified Allergy, Severe, Confusion, 05/30/17) Fentanyl (Verified Allergy, Severe, CONFUSION, 05/30/17) Cipro (Verified Allergy, Mild, GI SYMPTOMS, 05/30/17) Latex (Verified Allergy, Unknown, 05/30/17) Percocet (Verified Allergy, Unknown, PT DOES NOT KNOW WHAT REACTION IS, ) UNKNOWN REACTION Lortab (Verified Adverse Reaction, Intermediate, NAUSEA AND CONSTIPATION, 05/30/17) Reported Meds & Prescriptions Reported Meds & Active Scripts Active Bactrim DS (Sulfamethoxazole-Trimethoprim) 800-160 Mg Tab 1 Tab PO BID Reported Oxycodone ER (Oxycodone HCl) 30 Mg Tab 30 Mg PO BID Refresh Opth Drops (Polyvinyl Alcohol-Povidone Opth Drops) 1.4-0.6% Drops 1-2 Drop EACH EYE PRN PRN Neurontin (Gabapentin) 300 Mg Cap 900 Mg PO BID Memantine 10 Mg Tab 10 Mg PO BID Uribel (Bokmpmuvblh-Lskya-Iwanwiipg Blue) 1 Cap 118 Mg PO [id number] PRN Stiolto Respimat Inh (Tiotropium-Olodaterol Inh) 2.5-2.5 Mcg/Act Aero 2 Puff INH DAILY Aricept (Donepezil) 23 Mg Tab 23 Mg PO HS Do not split, crushed or chewed. Flomax (Tamsulosin HCl) 0.4 Mg Cap 0.8 Mg PO HS Baclofen 10 Mg Tab 10 Mg PO BID Toprol XL (Metoprolol Succinate) 100 Mg Tab 100 Mg PO DAILY Review of Systems Except as stated in HPI: all other systems reviewed are Neg General / Constitutional: No: Fever, Chills Cardiovascular: Positive: Chest Pain or Discomfort Respiratory: No: Cough, Shortness of Breath Gastrointestinal: No: Nausea, Vomiting, Diarrhea Genitourinary: Positive: Frequency Skin: No Rash Physical Exam Narrative GENERAL: Patient is awake and alert. SKIN: Warm and dry. No rash seen. HEAD: Atraumatic. Normocephalic. EYES: Pupils equal and round. Extraocular movements intact. ENT: No nasal bleeding or discharge. Mucous membranes pink and moist. NECK: Trachea midline. Neck supple. CARDIOVASCULAR: Regular rate and rhythm. Heart sounds normal. RESPIRATORY: No accessory muscle use. Lungs clear with full air movement throughout. He has tenderness to palpation of the right lower anterior chest wall. No crepitus or deformity. GASTROINTESTINAL: Abdomen soft, non-tender, nondistended. MUSCULOSKELETAL: No obvious deformities. No edema. NEUROLOGICAL: Awake and alert. No obvious cranial nerve deficits. Motor grossly within normal limits. Normal speech. PSYCHIATRIC: Appropriate mood and affect; insight and judgment normal. Data Data Last Documented VS Vital Signs Date Time Temp Pulse Resp B/P Pulse Ox O2 Delivery O2 Flow Rate FiO2 06/03/17 06:15 46 20 131/62 96 Room Air 06/03/17 05:10 98.8 Orders Basic Metabolic Panel (Bmp) (06/03/17 05:33) Ckmb (Isoenzyme) Profile (06/03/17 05:33) Complete Blood Count With Diff (06/03/17 05:33) D-Dimer (06/03/17 05:33) Magnesium (Mg) (06/03/17 05:33) Prothrombin Time / Inr (Pt) (06/03/17 05:33) Act Partial Throm Time (Ptt) (06/03/17 05:33) Troponin I (06/03/17 05:33) Chest, Single Ap (06/03/17 05:33) Iv Access Insert/Monitor (06/03/17 05:33) Morphine Inj (Morphine Inj) (06/03/17 05:45) Sodium Chloride 0.9% Flush (Ns Flush) (06/03/17 05:45) Ondansetron Inj (Zofran Inj) (06/03/17 05:45) Urinalysis - C+S If Indicated (06/03/17 05:33) CKMB (06/03/17 05:40) CKMB% (06/03/17 05:40) Ct Pulmonary Angiogram (06/03/17 06:21) Labs Laboratory Tests Test 06/03/17 05:40 White Blood Count 5.4 TH/MM3 Red Blood Count 4.45 MIL/MM3 Hemoglobin 13.7 GM/DL Hematocrit 40.6 % Mean Corpuscular Volume 91.3 FL Mean Corpuscular Hemoglobin 30.9 PG Mean Corpuscular Hemoglobin 33.8 % Concent Red Cell Distribution Width 14.2 % Platelet Count 145 TH/MM3 Mean Platelet Volume 9.3 FL Neutrophils (%) (Auto) 57.6 % Lymphocytes (%) (Auto) 27.9 % Monocytes (%) (Auto) 11.4 % Eosinophils (%) (Auto) 2.0 % Basophils (%) (Auto) 1.1 % Neutrophils # (Auto) 3.1 TH/MM3 Lymphocytes # (Auto) 1.5 TH/MM3 Monocytes # (Auto) 0.6 TH/MM3 Eosinophils # (Auto) 0.1 TH/MM3 Basophils # (Auto) 0.1 TH/MM3 CBC Comment DIFF FINAL Differential Comment Prothrombin Time 10.9 SEC Prothromb Time International 1.0 RATIO Ratio Activated Partial 25.1 SEC Thromboplast Time D-Dimer Quantitative (PE/DVT) 2.40 MG/L FEU Urine Color GREEN Urine Turbidity CLEAR Urine pH 6.0 Urine Specific [place] 1.013 Urine Protein NEG mg/dL Urine Glucose (UA) NEG mg/dL Urine Ketones NEG mg/dL Urine Occult Blood NEG Urine Nitrite NEG Urine Bilirubin NEG Urine Urobilinogen LESS THAN 2.0 MG/DL Urine Leukocyte Esterase TRACE Urine RBC 1 /hpf Urine WBC 1 /hpf Microscopic Urinalysis Comment CULT NOT INDICATED Sodium Level 138 MEQ/L Potassium Level 4.5 MEQ/L Chloride Level 107 MEQ/L Carbon Dioxide Level 24.3 MEQ/L Anion Gap 7 MEQ/L Blood Urea Nitrogen 8 MG/DL Creatinine 1.03 MG/DL Estimat Glomerular Filtration 69 ML/MIN Rate Random Glucose 87 MG/DL Calcium Level 8.8 MG/DL Magnesium Level 2.2 MG/DL Total Creatine Kinase 327 U/L Creatine Kinase MB 2.8 NG/ML Creatine Kinase MB % 0.9 % Troponin I LESS THAN 0.02 NG/ML MDM Medical Decision Making Medical Screen Exam Complete: Yes Emergency Medical Condition: Yes Medical Record Reviewed: Yes (patient was seen on 723 with urinary symptoms. He was diagnosed with UTI. He was discharged on Bactrim. There is no mention of right-sided chest discomfort in that record.) Differential Diagnosis Differential diagnosis of chest pain includes but is not limited to musculoskeletal pain, pulmonary embolism, acute coronary syndrome, pneumonia, pleurisy, shingles Narrative Course This patient presents with right anterior chest wall pain. Pain is exacerbated by movement. He is tender to palpation. He does not have any symptoms or any some for pneumonia. He does not have any rash to suggest shingles. He has had the pain for a couple of weeks so you would expect that he would have a rash at this point if he had shingles. He does have urinary frequency but does not have any CVA tenderness. CBC Diagram 06/03/17 05:40 D-dimer is 2.4. CT for PE has been ordered. BMP Diagram 06/03/17 05:40 Troponin is less than 0.02. His care is being turned over to the oncoming provider at 7 AM pending the results of his CT for PE. Diagnosis Primary Impression: Chest pain Qualified Code: R07.1 - Chest pain on breathing Condition: Stable Cony Rosa MD Jun 03, 2017 05:42
[2017-06-03] MEDS ORDERED: SODIUM CHLORIDE 0.9% FLUSH 10 ML FLUSH IVF PRN (05:45)
[2017-06-03] MEDS ORDERED: ONDANSETRON HCL 4 MG/2 ML VIAL IV PUSH ONE (05:45)
[2017-06-03] MEDS ORDERED: MORPHINE SULFATE 4 MG/ML INJ IV PUSH ONE (05:45)
[2017-06-03 06:04] LABS: APTT (PATIENT) 25.1 SEC (24.3-30.1); PROTHROMBIN TIME - PATIENT 10.9 SEC (9.8-11.6)
[2017-06-03 06:10] LABS: AUTOMATED NEUTROPHIL # 3.1 TH/MM3 (1.8-7.7); BASOPHIL # 0.1 TH/MM3 (0-0.2); BASOPHIL % 1.1 % (0.0-2.0); EOSINOPHIL # 0.1 TH/MM3 (0-0.4); HEMATOCRIT 40.6 % (39.0-51.0); HEMO FLAGS DIFF FINAL; LYMPH % 27.9 % (9.0-44.0); LYMPHOCYTE # 1.5 TH/MM3 (1.0-4.8); MEAN CELL VOLUME 91.3 FL (80.0-100.0); MEAN CORPUSCULAR HEMOGLOBIN 30.9 PG (27.0-34.0); MEAN CORPUSCULAR HGB CONC 33.8 % (32.0-36.0); MONO % 11.4 % (0.0-8.0); NEUT % 57.6 % (16.0-70.0); PLATELET COUNT 145 TH/MM3 (150-450); RED BLOOD COUNT 4.45 MIL/MM3 (4.50-5.90); RED CELL DISTRIBUTION WIDTH 14.2 % (11.6-17.2); WHITE BLOOD COUNT 5.4 TH/MM3 (4.0-11.0)
[2017-06-03 06:15] VITALS: BP 131/62; PULSE 46; RESP 20; O2SAT 96
[2017-06-03 06:18] LABS: ANION GAP 7 MEQ/L (5-15); BICARBONATE 24.3 MEQ/L (21.0-32.0); BLOOD UREA NITROGEN 8 MG/DL (7-18); BLOOD, URINE NEG (NEG); CHLORIDE 107 MEQ/L (98-107); CREATINE KINASE 327 U/L (39-308); GLOMERULAR FILTRATION RATE 69 ML/MIN (>89); GLUCOSE,URINE NEG (NEG); KETONE, URINE NEG (NEG); MAGNESIUM 2.2 MG/DL (1.5-2.5); NITRITE,URINE NEG (NEG); SODIUM (NA) 138 MEQ/L (136-145)
[2017-06-03 06:20] LABS: POTASSIUM 4.5 MEQ/L (3.5-5.1)
[2017-06-03 06:25] LABS: COMMENT (UR) CULT NOT INDICATED; CULTURE IF INDICATED CULT NOT INDICATED; URINE COLOR GREEN (YELLW/STRAW)
--- NOTE | 2017-06-03 06:25 | RADRPT ---
EXAM DATE/TIME: 06/03/2017 05:35 [facility] COMPARISON: CHEST PA & LAT, April 30, 2017, 10:15. CHEST SINGLE AP, February 22, 2017, 20:21. INDICATIONS : Right lower, anterior chest and rib pain for 4 months, denies trauma, no shortness of breath MEDICAL HISTORY : Aneurysm, abdominal. Chronic obstructive pulmonary disease. SURGICAL HISTORY : lumbar, right hip ENCOUNTER: Initial ACUITY: 4 - 6 months PAIN SCORE: 6/10 LOCATION: Right chest FINDINGS: Portable AP view of the chest demonstrates a normal-sized cardiac silhouette. No effusion, consolidat ion, or pneumothorax is visualized. The bones and soft tissues demonstrate no acute abnormality. CONCLUSION: No acute cardiopulmonary abnormality is identified. Jamie Rees MD on June 03, 2017 at 6:22 Board Certified Radiologist. This report was verified electronically.
[2017-06-03 06:32] LABS: CKMB 2.8 NG/ML (0.5-3.6)
[2017-06-03] MEDS ORDERED: IOHEXOL 350 MG/ML 10 ML VIAL (for RAD DIAG) IV ONE (07:01)
--- NOTE | 2017-06-03 07:14 | RADRPT ---
EXAM DATE/TIME: 06/03/2017 06:59 [facility] COMPARISON: No previous studies available for comparison. INDICATIONS : Right side chest pain. IV CONTRAST: 60 cc Omnipaque 350 (iohexol) IV RADIATION DOSE: 23.41 CTDIvol (mGy) MEDICAL HISTORY : Hypertension. Aneurysm, abdominal. Chronic obstructive pulmonary disease.A-Fib. SURGICAL HISTORY : None. ENCOUNTER: Initial ACUITY: 1 day PAIN SCALE: 6/10 LOCATION: Right chest TECHNIQUE: Volumetric scanning of the chest was performed using a pulmonary embolism protocol MIP images were re constructed. Using automated exposure control and adjustment of the mA and/or kV according to patien t size, radiation dose was kept as low as reasonably achievable to obtain optimal diagnostic quality images. DICOM format image data is available electronically for review and comparison. Follow-up recommendations for incidentally detected pulmonary nodules are based at a minimum on nodul e size and patient risk factors according to Fleischner Society Guidelines. FINDINGS: PULMONARY ARTERIES: No filling defects are seen in the pulmonary arteries through the segmental level. LUNGS: There is no consolidation or pneumothorax . No concerning pulmonary nodule is visualized. There is c entral lobar emphysema. No acute pulmonary infiltrates. PLEURAE: There is no pleural thickening or pleural effusion. MEDIASTINUM: There is good visualization of the great vessels of the middle mediastinum. No evidence of mediastin al or hilar adenopathy/mass. MUSCULOSKELETAL: Within normal limits for patient age. MISCELLANEOUS: The visualized upper abdominal organs demonstrate no acute abnormality. CONCLUSION: 1. No evidence of pulmonary embolism. 2. Central lobar emphysema. 3. No acute pulmonary infiltrates. Jaden Garvey MD on June 03, 2017 at 7:10 Board Certified Radiologist. This report was verified electronically.
--- NOTE | 2017-06-03 07:35 | PD ---
Data Data Last Documented VS Vital Signs Date Time Temp Pulse Resp B/P Pulse Ox O2 Delivery O2 Flow Rate FiO2 06/03/17 06:15 46 20 131/62 96 Room Air 06/03/17 05:10 98.8 Orders Basic Metabolic Panel (Bmp) (06/03/17 05:33) Ckmb (Isoenzyme) Profile (06/03/17 05:33) Complete Blood Count With Diff (06/03/17 05:33) D-Dimer (06/03/17 05:33) Magnesium (Mg) (06/03/17 05:33) Prothrombin Time / Inr (Pt) (06/03/17 05:33) Act Partial Throm Time (Ptt) (06/03/17 05:33) Troponin I (06/03/17 05:33) Chest, Single Ap (06/03/17 05:33) Iv Access Insert/Monitor (06/03/17 05:33) Morphine Inj (Morphine Inj) (06/03/17 05:45) Sodium Chloride 0.9% Flush (Ns Flush) (06/03/17 05:45) Ondansetron Inj (Zofran Inj) (06/03/17 05:45) Urinalysis - C+S If Indicated (06/03/17 05:33) CKMB (06/03/17 05:40) CKMB% (06/03/17 05:40) Ct Pulmonary Angiogram (06/03/17 06:21) Iohexol 350 Inj (Omnipaque 350 Inj) (06/03/17 07:01) Labs Laboratory Tests Test 06/03/17 05:40 White Blood Count 5.4 TH/MM3 Red Blood Count 4.45 MIL/MM3 Hemoglobin 13.7 GM/DL Hematocrit 40.6 % Mean Corpuscular Volume 91.3 FL Mean Corpuscular Hemoglobin 30.9 PG Mean Corpuscular Hemoglobin 33.8 % Concent Red Cell Distribution Width 14.2 % Platelet Count 145 TH/MM3 Mean Platelet Volume 9.3 FL Neutrophils (%) (Auto) 57.6 % Lymphocytes (%) (Auto) 27.9 % Monocytes (%) (Auto) 11.4 % Eosinophils (%) (Auto) 2.0 % Basophils (%) (Auto) 1.1 % Neutrophils # (Auto) 3.1 TH/MM3 Lymphocytes # (Auto) 1.5 TH/MM3 Monocytes # (Auto) 0.6 TH/MM3 Eosinophils # (Auto) 0.1 TH/MM3 Basophils # (Auto) 0.1 TH/MM3 CBC Comment DIFF FINAL Differential Comment Prothrombin Time 10.9 SEC Prothromb Time International 1.0 RATIO Ratio Activated Partial 25.1 SEC Thromboplast Time D-Dimer Quantitative (PE/DVT) 2.40 MG/L FEU Urine Color GREEN Urine Turbidity CLEAR Urine pH 6.0 Urine Specific [place] 1.013 Urine Protein NEG mg/dL Urine Glucose (UA) NEG mg/dL Urine Ketones NEG mg/dL Urine Occult Blood NEG Urine Nitrite NEG Urine Bilirubin NEG Urine Urobilinogen LESS THAN 2.0 MG/DL Urine Leukocyte Esterase TRACE Urine RBC 1 /hpf Urine WBC 1 /hpf Microscopic Urinalysis Comment CULT NOT INDICATED Sodium Level 138 MEQ/L Potassium Level 4.5 MEQ/L Chloride Level 107 MEQ/L Carbon Dioxide Level 24.3 MEQ/L Anion Gap 7 MEQ/L Blood Urea Nitrogen 8 MG/DL Creatinine 1.03 MG/DL Estimat Glomerular Filtration 69 ML/MIN Rate Random Glucose 87 MG/DL Calcium Level 8.8 MG/DL Magnesium Level 2.2 MG/DL Total Creatine Kinase 327 U/L Creatine Kinase MB 2.8 NG/ML Creatine Kinase MB % 0.9 % Troponin I LESS THAN 0.02 NG/ML MDM Supervised Visit with CLAUDINE: Yes Narrative Course Patient care assumed from Dr. Rosa at 0700. This patient is known to me from previous ER admissions. Patient is here for right-sided chest pain for the past 2 weeks. States that he's been to [facility] recently diagnosed with a chest wall contusion. He is concerned because the pain has not gotten any better. Workup here in the emergency department is negative, CT PE protocol was performed which was also negative. On my examination his pain is highly atypical for ACS. He asked what he could do for pain and I offered to write him a prescription for narcotics and he declined. The patient counseled that he 's received morphine in the emergency department but still fairly adamant that he wants to drive home. For that reason he was held in the emergency department for an additional few hours. At this time he is stable to follow up with his primary care provider who may at their leisure refer him to pain management for possible lidocaine trigger point injections. However he is stable for discharge at this time. Diagnosis Primary Impression: Chest wall pain Additional Instruction: No driving until 12:30 PM. You have had morphine today and you can get a DUI ticket or in an accident. Follow up with your primary care physician by phone today. Disposition: 01 DISCHARGE HOME Condition: Stable Lj Borjas MD Jun 03, 2017 07:35
== END 2017-06-03 10:55 | disposition home or self-care (01) ==
LOC: NEPC 05:09
DX: R07.89 Other chest pain (principal); R35.0 Frequency of micturition; I48.91 Unspecified atrial fibrillation; J44.9 Chronic obstructive pulmonary disease, unspecified; F03.90 Unspecified dementia, unspecified severity, without behavioral disturbance, psychotic disturbance, mood disturbance, and anxiety; K58.9 Irritable bowel syndrome, unspecified; I10 Essential (primary) hypertension; E78.00 Pure hypercholesterolemia, unspecified; N40.1 Benign prostatic hyperplasia with lower urinary tract symptoms
CPT/HCPCS: 71010; 71275; 80048; 81001; 82550; 82552; 83735; 84484; 85025; 85379; 85610; 85730; 96374; 96375; 99285; J2270; J2405; Q9967

== ENCOUNTER 2017-08-08 09:31 | Observation (INO) | payer MEDICARE, BC ==
[2017-08-08] VITALS (11 sets, daily range): BP systolic 135–180; BP diastolic 62–77; PULSE 56–108; RESP 14–22; TEMP 97.9–99.1; O2SAT 94–98
[~2017-08-08] VITALS: Ht 167.6 cm; Wt 78.0 kg
[~2017-08-08 09:31] MED LIST changes: -AMIT50TA3 PO
[2017-08-08] MEDS ORDERED: SODIUM CHLORIDE 0.9% FLUSH 5 ML FLUSH IV FLUSH PRN (09:45)
[2017-08-08] MEDS ORDERED: LEVE500 PO (09:57)
[2017-08-08] MEDS ORDERED: AMIT25TA9 PO (09:57)
[2017-08-08] MEDS ORDERED: MELO-1 PO (09:57)
--- NOTE | 2017-08-08 09:59 | PD ---
HPI Chief Complaint: Medical Clearance Time Seen by Provider: 09:44 Travel History International Travel<30 days: No Contact w/Intl Traveler<30days: No Traveled to known affect area: No History of Present Illness HPI LIVES AT [facility] , APPARENTLY HE WAS HAVING DIFFICULTY GETTING UP, NO FALL , LIVES ON ASSISTED LIVING SIDE, PATIENT DENIES PAIN/SOB/CP/ABDPAIN/ANTHONY/...?GEN WEAKNESS? IS BEST GUESTIMATE BASED ON PATIENT COMPLAINT PFSH Past Medical History AAA: Yes Arthritis: Yes Asthma: Yes Atrial Fibrillation: Yes Blood Disorders: No Anxiety: Yes Cancer: No Cardiovascular Problems: Yes (htn on meds) High Cholesterol: Yes COPD: Yes Dementia: Yes Diabetes: No Diminished Hearing: No Endocrine: No Gastrointestinal Disorders: Yes (IBS) Glaucoma: No Genitourinary: Yes (ENLARGED PROSTATE) Hepatitis: No Hiatal Hernia: No Hypertension: Yes Immune Disorder: No Implanted Vascular Access Dvce: No Musculoskeletal: Yes Neurologic: Yes Respiratory: Yes (COPD) Immunizations Current: Yes Thyroid Disease: No PNEUMOCCOCAL Vaccine (Year): 2 Past Surgical History Abdominal Surgery: No AICD: No Cardiac Surgery: No Ear Surgery: No Endocrine Surgery: No Eye Surgery: No Genitourinary Surgery: No Gynecologic Surgery: No Joint Replacement: Yes (RIGHT HIP) Neurologic Surgery: Yes (LUMBAR LAMINECTOMY, BACK SURGERY FOR DROP FOOT) Oral Surgery: No Pacemaker: No Thoracic Surgery: No Other Surgery: Yes (RIGHT UPPER LEG STENT) Social History Alcohol Use: No Tobacco Use: No (QUIT ) Substance Use: No Allergies-Medications (Allergen,Severity, Reaction): Coded Allergies: amoxicillin (Unverified Allergy, Severe, Hives, 08/08/17) fentanyl (Unverified Allergy, Severe, CONFUSION, 08/08/17) lorazepam (Unverified Allergy, Severe, Confusion, 08/08/17) ciprofloxacin (Unverified Allergy, Mild, GI SYMPTOMS, 08/08/17) acetaminophen (Unverified Allergy, Unknown, PT DOES NOT KNOW WHAT REACTION IS, 08/08/17) UNKNOWN REACTION latex (Unverified Allergy, Unknown, 08/08/17) oxycodone (Unverified Allergy, Unknown, PT DOES NOT KNOW WHAT REACTION IS , 08/08/17) UNKNOWN REACTION hydrocodone (Unverified Adverse Reaction, Intermediate, NAUSEA AND CONSTIPATION, 08/08/17) Reported Meds & Prescriptions Reported Meds & Active Scripts Active Bactrim DS (Sulfamethoxazole-Trimethoprim) 800-160 Mg Tab 1 Tab PO BID Reported Meloxicam 15 Mg Tab 15 Mg PO DAILY Keppra (Levetiracetam) 500 Mg Tab 500 Mg PO BID Amitriptyline (Amitriptyline HCl) 25 Mg Tab 25 Mg PO HS Refresh Opth Drops (Polyvinyl Alcohol-Povidone Opth Drops) 1.4-0.6% Drops 1-2 Drop EACH EYE PRN PRN Memantine 10 Mg Tab 10 Mg PO BID Uribel (Tbkxvbfvaww-Ofeos-Hbaxwiqjz Blue) 1 Cap 118 Mg PO [id number] PRN Stiolto Respimat Inh (Tiotropium-Olodaterol Inh) 2.5-2.5 Mcg/Act Aero 2 Puff INH DAILY Aricept (Donepezil) 23 Mg Tab 23 Mg PO HS Do not split, crushed or chewed. Flomax (Tamsulosin HCl) 0.4 Mg Cap 0.8 Mg PO HS Baclofen 10 Mg Tab 10 Mg PO BID Toprol XL (Metoprolol Succinate) 100 Mg Tab 100 Mg PO DAILY Review of Systems Except as stated in HPI: all other systems reviewed are Neg Musculoskeletal: Positive: Weakness Physical Exam Narrative GENERAL: SKIN: Warm and dry. HEAD: Atraumatic. Normocephalic. EYES: Pupils equal and round. No scleral icterus. No injection or drainage. ENT: No nasal bleeding or discharge. Mucous membranes pink and moist. NECK: Trachea midline. No JVD. CARDIOVASCULAR: Regular rate and rhythm. RESPIRATORY: No accessory muscle use. Clear to auscultation. Breath sounds equal bilaterally. GASTROINTESTINAL: Abdomen soft, non-tender, nondistended. Hepatic and splenic margins not palpable. MUSCULOSKELETAL: Extremities without clubbing, cyanosis, or edema. No obvious deformities. NEUROLOGICAL: Awake and alert. No obvious cranial nerve deficits. Motor grossly within normal limits. 4 out of 5 muscle strength in the arms and legs. Normal speech. PSYCHIATRIC: Appropriate mood and affect; insight and judgment normal. Data Data Last Documented VS Vital Signs Date Time Temp Pulse Resp B/P (MAP) Pulse Ox O2 Delivery O2 Flow Rate FiO2 08/08/17 11:00 57 18 180/71 (107) 96 Room Air 08/08/17 09:44 98.3 Orders Orders Electrocardiogram (08/08/17 09:44) Complete Blood Count With Diff (08/08/17 09:44) Comprehensive Metabolic Panel (08/08/17 09:44) Prothrombin Time / Inr (Pt) (08/08/17 09:44) Act Partial Throm Time (Ptt) (08/08/17 09:44) Troponin I (08/08/17 09:44) Thyroid Stimulating Hormone (08/08/17 09:44) Urinalysis - C+S If Indicated (08/08/17 09:44) Lactic Acid Sepsis Protocol (08/08/17 09:44) Chest, Single Ap (08/08/17 09:44) Ct Brain W/O Iv Contrast(Rout) (08/08/17 09:44) Blood Glucose (08/08/17 09:44) Ecg Monitoring (08/08/17 09:44) Iv Access Insert/Monitor (08/08/17 09:44) Oximetry (08/08/17 09:44) Sodium Chloride 0.9% Flush (Ns Flush) (08/08/17 09:45) Blood Culture (08/08/17 09:44) Aspirin Chew (Aspirin Chew) (08/08/17 11:30) Nitroglycerin 2% Oint (Nitroglycerin 2% (08/08/17 11:30) Creatine Kinase (Cpk) (08/08/17 12:10) Admit Order (Ed Use Only) (08/08/17 12:10) CKMB (08/08/17 10:00) CKMB% (08/08/17 10:00) Labs Laboratory Tests Test 08/08/17 10:00 08/08/17 10:05 White Blood Count 10.7 TH/MM3 Red Blood Count 4.49 MIL/MM3 Hemoglobin 14.2 GM/DL Hematocrit 41.5 % Mean Corpuscular Volume 92.3 FL Mean Corpuscular Hemoglobin 31.6 PG Mean Corpuscular Hemoglobin Concent 34.3 % Red Cell Distribution Width 13.5 % Platelet Count 144 TH/MM3 Mean Platelet Volume 9.3 FL Neutrophils (%) (Auto) 73.7 % Lymphocytes (%) (Auto) 14.2 % Monocytes (%) (Auto) 9.6 % Eosinophils (%) (Auto) 1.7 % Basophils (%) (Auto) 0.8 % Neutrophils # (Auto) 7.9 TH/MM3 Lymphocytes # (Auto) 1.5 TH/MM3 Monocytes # (Auto) 1.0 TH/MM3 Eosinophils # (Auto) 0.2 TH/MM3 Basophils # (Auto) 0.1 TH/MM3 CBC Comment DIFF FINAL Differential Comment Prothrombin Time 10.8 SEC Prothromb Time International Ratio 1.0 RATIO Activated Partial Thromboplast Time 25.6 SEC Blood Urea Nitrogen 15 MG/DL Creatinine 1.14 MG/DL Random Glucose 90 MG/DL Total Protein 7.1 GM/DL Albumin 3.2 GM/DL Calcium Level 8.6 MG/DL Alkaline Phosphatase 75 U/L Aspartate Amino Transf (AST/SGOT) 64 U/L Alanine Aminotransferase (ALT/SGPT) 15 U/L Total Bilirubin 0.8 MG/DL Sodium Level 135 MEQ/L Potassium Level 3.8 MEQ/L Chloride Level 100 MEQ/L Carbon Dioxide Level 29.2 MEQ/L Anion Gap 6 MEQ/L Estimat Glomerular Filtration Rate 61 ML/MIN Total Creatine Kinase 1401 U/L Creatine Kinase MB 16.0 NG/ML Creatine Kinase MB % 1.1 % Troponin I 0.06 NG/ML Thyroid Stimulating Hormone 3rd Gen 0.526 uIU/ML Lactic Acid Level 1.1 mmol/L MDM Medical Decision Making Medical Screen Exam Complete: Yes Emergency Medical Condition: Yes Medical Record Reviewed: Yes Differential Diagnosis PNA V UTI V ELECTROLYTE ABNL V ATYPICAL STEMI Narrative Course although patient did not c/o cp, his complaint of generalized weakness could be an anginal equivalent, patient will be aedmistted for observation and further cardiac evaluation Diagnosis Primary Impression: GENERALIZED WEAKNESS Additional Impression: Elevated troponin Admitting Information Admitting Physician Requests: Observation Scripts Gabapentin (Neurontin) 300 Mg Cap 300 MG PO BID for Pain Management, #60 CAP Prov: Mohsen Easley 08/09/17 Jesus Martinez MD Aug 08, 2017 09:59
[2017-08-08 10:23] LABS: AUTOMATED NEUTROPHIL # 7.9 TH/MM3 (1.8-7.7); BASOPHIL # 0.1 TH/MM3 (0-0.2); BASOPHIL % 0.8 % (0.0-2.0); EOSINOPHIL # 0.2 TH/MM3 (0-0.4); EOSINOPHIL % 1.7 % (0.0-4.0); HEMATOCRIT 41.5 % (39.0-51.0); HEMO FLAGS DIFF FINAL; LYMPH % 14.2 % (9.0-44.0); LYMPHOCYTE # 1.5 TH/MM3 (1.0-4.8); MEAN CELL VOLUME 92.3 FL (80.0-100.0); MEAN CORPUSCULAR HEMOGLOBIN 31.6 PG (27.0-34.0); MEAN CORPUSCULAR HGB CONC 34.3 % (32.0-36.0); MONO % 9.6 % (0.0-8.0); NEUT % 73.7 % (16.0-70.0); PLATELET COUNT 144 TH/MM3 (150-450); RED BLOOD COUNT 4.49 MIL/MM3 (4.50-5.90); RED CELL DISTRIBUTION WIDTH 13.5 % (11.6-17.2); WHITE BLOOD COUNT 10.7 TH/MM3 (4.0-11.0)
--- NOTE | 2017-08-08 10:26 | RADRPT ---
EXAM DATE/TIME: 08/08/2017 09:54 [facility] COMPARISON: CHEST SINGLE AP, June 03, 2017, 5:35. INDICATIONS : Shortness of breath. MEDICAL HISTORY : Hypercholesterolemia. Hypertension AFIB, COPD, Asthma. SURGICAL HISTORY : None. ENCOUNTER: Initial ACUITY: 1 day PAIN SCORE: Non-responsive. LOCATION: Bilateral chest FINDINGS: A single view of the chest demonstrates the lungs to be symmetrically aerated without evidence of mas s, infiltrate or effusion. The cardiomediastinal contours are unremarkable. Osseous structures are intact. CONCLUSION: No acute disease. Mali Sheridan MD on August 08, 2017 at 10:24 Board Certified Radiologist. This report was verified electronically.
[2017-08-08 10:34] LABS: APTT (PATIENT) 25.6 SEC (24.3-30.1); PROTHROMBIN TIME - PATIENT 10.8 SEC (9.8-11.6)
[2017-08-08 10:42] LABS: ALT (GPT) 15 U/L (12-78); ANION GAP 6 MEQ/L (5-15); AST (GOT) 64 U/L (15-37); BICARBONATE 29.2 MEQ/L (21.0-32.0); BLOOD UREA NITROGEN 15 MG/DL (7-18); CHLORIDE 100 MEQ/L (98-107); GLOMERULAR FILTRATION RATE 61 ML/MIN (>89); POTASSIUM 3.8 MEQ/L (3.5-5.1); SODIUM (NA) 135 MEQ/L (136-145)
[2017-08-08 10:51] LABS: ALKALINE PHOSPHATASE 75 U/L (45-117); TOTAL BILIRUBIN ADULT 0.8 MG/DL (0.2-1.0)
--- NOTE | 2017-08-08 11:01 | RADRPT ---
EXAM DATE/TIME: 08/08/2017 10:29 [facility] COMPARISON: CT BRAIN W/O CONTRAST, January 20, 2016, 16:25. INDICATIONS : Altered mental status. RADIATION DOSE: 69.15 CTDIvol (mGy) MEDICAL HISTORY : Hypertension. Aneurysm, abdominal. Dementia. SURGICAL HISTORY : lumbar laminectomy ENCOUNTER: Initial ACUITY: 1 day PAIN SCALE: Non-responsive LOCATION: Bilateral head TECHNIQUE: Multiple contiguous axial images were obtained of the head. Using automated exposure control and adj ustment of the mA and/or kV according to patient size, radiation dose was kept as low as reasonably a chievable to obtain optimal diagnostic quality images. DICOM format image data is available electro nically for review and comparison. FINDINGS: CEREBRUM: The ventricles are normal for age. No evidence of midline shift, mass lesion, hemorrhage or acute in farction. No extra-axial fluid collections are seen. There has been mild progression of diffuse whit e matter atrophic changes as compared to the prior exam with mild diffuse increased prominence of the sulci. POSTERIOR FOSSA: The cerebellum and brainstem are intact. The 4th ventricle is midline. The cerebellopontine angle i s unremarkable. EXTRACRANIAL: The visualized portion of the orbits is intact. SKULL: The calvaria is intact. No evidence of skull fracture. CONCLUSION: Progressive white matter atrophic changes without evidence of focal acute abnormality.. Mali Sheridan MD on August 08, 2017 at 10:58 Board Certified Radiologist. This report was verified electronically.
[2017-08-08] MEDS ORDERED: ASPIRIN 81 MG CHEW TAB PO ONE (11:30)
[2017-08-08] MEDS ORDERED: NITROGLYCERIN 2% OINT 1 GM PACKET TOP ONE (11:30)
[2017-08-08] MEDS ORDERED: BISACODYL 10 MG SUPP RECTAL PRN (12:15)
[2017-08-08] MEDS ORDERED: SODIUM CHLORIDE 0.9% FLUSH 10 ML FLUSH IV FLUSH PRN (12:15)
[2017-08-08] MEDS ORDERED: SENNOSIDES 8.6 MG TAB PO PRN (12:15)
[2017-08-08] MEDS ORDERED: LACTULOSE SYRUP 20 GM/30 ML CUP PO PRN (12:15)
[2017-08-08] MEDS ORDERED: NALOXONE HCL 0.4 MG/ML AMP IV PUSH PRN (12:15)
[2017-08-08] MEDS ORDERED: MAGNESIUM HYDROXIDE SUSP 30 ML CUP PO PRN (12:15)
--- NOTE | 2017-08-08 14:01 | HHI.HP ---
HPI [facility] Primary Care Physician Preston Anders MD Admission Diagnosis SYNCOPE V NONSTEMI Diagnoses: Chief Complaint: weakness Travel History International Travel<30 Days: No Contact w/Intl Traveler <30 Da: No Traveled to Known Affected Are: No History of Present Illness Written by Patricia Velázquez, acting as scribe for Dr. Martin on 08/08/17 at 13: 54. 82-year-old male with history of chronic back pain, HTN, HLD, A.fib, COPD, Dementia, IBS, AAA, BPH, PAD, presents with worsening weakness. The patient is not the best historian. He is oriented to person and place, but not year. The patient's is at bedside and assists with the history. She reports he has been getting very weak and not eating well recently, much worse over the past few days. This morning he attempted to ambulate with his walker and was unable to do so. The patient reports chronic low back pain, and the states he last had his pain medication increased approximately 4 weeks ago. Two weeks ago the patient's started administering his pills because she had a feeling he wasn't taking them correctly. Upon further questioning, the patient also reports a recent productive cough with villasenor to brown sputum. Denies any recent fevers/chills, nausea/vomiting, diarrhea, chest pain, or shortness of breath. He does report occasional night sweats over the past few weeks. He also reports dysuria that started a few days ago and started taking Urinol with no relief. He also has some suprapubic and left lower quadrant abdominal pain. The patient recently moved to [facility] living [facility] 2 weeks ago and has [facility] nursing. Him and his have been talking to his PCP Dr. Anders about going with hospice but have not spoken with hospice yet. PCP-Dr. Anders Neurologist-Dr. Stubbs Urologist-Dr. Day [employer] Consultant-Dr. Sr Box Blank Machine Feeder-Dr. Cedillo Review of Systems ROS Limitations: Poor Historian Except as stated in HPI: all other systems reviewed are Neg Past Family Social History Past Medical History Hypertension Hyperlipidemia Atrial fibrillation COPD Dementia IBS AAA BPH PAD Past Surgical History Lumbar laminectomy Back surgery for foot drop Right total hip replacement Right leg stent Reported Medications Reported Meds & Active Scripts Active Bactrim DS (Sulfamethoxazole-Trimethoprim) 800-160 Mg Tab 1 Tab PO BID Reported Meloxicam 15 Mg Tab 15 Mg PO DAILY Keppra (Levetiracetam) 500 Mg Tab 500 Mg PO BID Amitriptyline (Amitriptyline HCl) 25 Mg Tab 25 Mg PO HS Oxycodone ER (Oxycodone HCl) 30 Mg Tab 30 Mg PO BID Refresh Opth Drops (Polyvinyl Alcohol-Povidone Opth Drops) 1.4-0.6% Drops 1-2 Drop EACH EYE PRN PRN Neurontin (Gabapentin) 300 Mg Cap 900 Mg PO BID Memantine 10 Mg Tab 10 Mg PO BID Uribel (Weahcejdfiu-Mlabr-Vqkfpjdfn Blue) 1 Cap 118 Mg PO [id number] PRN Stiolto Respimat Inh (Tiotropium-Olodaterol Inh) 2.5-2.5 Mcg/Act Aero 2 Puff INH DAILY Aricept (Donepezil) 23 Mg Tab 23 Mg PO HS Do not split, crushed or chewed. Flomax (Tamsulosin HCl) 0.4 Mg Cap 0.8 Mg PO HS Baclofen 10 Mg Tab 10 Mg PO BID Toprol XL (Metoprolol Succinate) 100 Mg Tab 100 Mg PO DAILY Allergies: Coded Allergies: amoxicillin (Unverified Allergy, Severe, Hives, 08/08/17) fentanyl (Unverified Allergy, Severe, CONFUSION, 08/08/17) lorazepam (Unverified Allergy, Severe, Confusion, 08/08/17) ciprofloxacin (Unverified Allergy, Mild, GI SYMPTOMS, 08/08/17) acetaminophen (Unverified Allergy, Unknown, PT DOES NOT KNOW WHAT REACTION IS, 08/08/17) UNKNOWN REACTION latex (Unverified Allergy, Unknown, 08/08/17) oxycodone (Unverified Allergy, Unknown, PT DOES NOT KNOW WHAT REACTION IS , 08/08/17) UNKNOWN REACTION hydrocodone (Unverified Adverse Reaction, Intermediate, NAUSEA AND CONSTIPATION, 08/08/17) Active Ordered Medications Current Medications Medications (Trade) Dose Ordered Sig/Telly Route Start Time Stop Time Status Last Admin (NS Flush) 2 ml UNSCH PRN IV FLUSH 08/08/17 09:45 (NS Flush) 2 ml UNSCH PRN IV FLUSH 08/08/17 12:15 (NS Flush) 2 ml BID IV FLUSH 08/08/17 21:00 (Heparin Inj) 5,000 units Q12HR SQ 08/08/17 21:00 (Narcan Inj) 0.4 mg UNSCH PRN IV PUSH 08/08/17 12:15 (Ирина-Colace) 1 tab BID PO 08/08/17 21:00 (Milk Of Magnesia Liq) 30 ml Q12H PRN PO 08/08/17 12:15 (Senokot) 17.2 mg Q12H PRN PO 08/08/17 12:15 (Dulcolax Supp) 10 mg DAILY PRN RECTAL 08/08/17 12:15 (Lactulose Liq) 30 ml DAILY PRN PO 08/08/17 12:15 (Elavil) 25 mg HS PO 08/08/17 21:00 (Aricept) 23 mg HS PO 08/08/17 21:00 (Keppra) 500 mg BID PO 08/08/17 21:00 (Namenda) 10 mg BID PO 08/08/17 21:00 (Toprol Xl) 100 mg DAILY PO 08/09/17 09:00 (Flomax) 0.8 mg HS PO 08/08/17 21:00 Family History Unknown Social History Denies any tobacco, alcohol, or illicit drug use. Lives at [facility] Physical Exam Vital Signs Vital Signs Date Time Temp Pulse Resp B/P (MAP) Pulse Ox O2 Delivery O2 Flow Rate FiO2 08/08/17 13:00 58 14 148/67 (94) 98 Room Air 08/08/17 11:00 57 18 180/71 (107) 96 Room Air 08/08/17 10:07 54 24 08/08/17 09:58 95 Room Air 08/08/17 09:44 98.3 56 22 153/66 (95) 96 Physical Exam GENERAL: Well-nourished, well-developed elderly male patient in [facility]. SKIN: Warm and dry. No rash. HEAD: Normocephalic. Atraumatic. EYES: Pupils equal and round but pinpoint bilaterally. No scleral icterus. No injection or drainage. ENT: No nasal bleeding or discharge. Mucous membranes pink and moist. NECK: Supple. Trachea midline. CARDIOVASCULAR: Regular rate and rhythm. S1, S2 noted. No murmur appreciated. RESPIRATORY: No accessory muscle use. Clear to auscultation. Breath sounds equal bilaterally. GASTROINTESTINAL: Abdomen soft, nondistended, mild LLQ TTP. Normoactive bowel sounds x4. MUSCULOSKELETAL: No obvious deformities. Extremities without clubbing, cyanosis , or edema. Bilateral lower extremities with diffuse ecchymosis. NEUROLOGICAL: Awake and alert. No obvious cranial nerve deficits. Motor grossly within normal limits. Moving all extremities spontaneously. Normal speech. PSYCHIATRIC: Appropriate mood and affect; insight and judgment fair. Laboratory Laboratory Tests Test 08/08/17 10:00 08/08/17 10:05 White Blood Count 10.7 Red Blood Count 4.49 Hemoglobin 14.2 Hematocrit 41.5 Mean Corpuscular Volume 92.3 Mean Corpuscular Hemoglobin 31.6 Mean Corpuscular Hemoglobin Concent 34.3 Red Cell Distribution Width 13.5 Platelet Count 144 Mean Platelet Volume 9.3 Neutrophils (%) (Auto) 73.7 Lymphocytes (%) (Auto) 14.2 Monocytes (%) (Auto) 9.6 Eosinophils (%) (Auto) 1.7 Basophils (%) (Auto) 0.8 Neutrophils # (Auto) 7.9 Lymphocytes # (Auto) 1.5 Monocytes # (Auto) 1.0 Eosinophils # (Auto) 0.2 Basophils # (Auto) 0.1 CBC Comment DIFF FINAL Differential Comment Prothrombin Time 10.8 Prothromb Time International Ratio 1.0 Activated Partial Thromboplast Time 25.6 Blood Urea Nitrogen 15 Creatinine 1.14 Random Glucose 90 Total Protein 7.1 Albumin 3.2 Calcium Level 8.6 Alkaline Phosphatase 75 Aspartate Amino Transf (AST/SGOT) 64 Alanine Aminotransferase (ALT/SGPT) 15 Total Bilirubin 0.8 Sodium Level 135 Potassium Level 3.8 Chloride Level 100 Carbon Dioxide Level 29.2 Anion Gap 6 Estimat Glomerular Filtration Rate 61 Troponin I 0.06 Thyroid Stimulating Hormone 3rd Gen 0.526 Lactic Acid Level 1.1 Date/Time Source Procedure Growth Status 08/08/17 10:05 Blood Peripheral Aerobic Blood Culture Pending Received 08/08/17 10:05 Blood Peripheral Anaerobic Blood Culture Pending Received Result Diagram: 08/08/17 1000 08/08/17 1000 Caprini VTE Risk Assessment Caprini VTE Risk Assessment: Mod/High Risk (score >= 2) Caprini Risk Assessment Model Point Value = 1 Point Value = 2 Point Value = 3 Point Value = 5 Age 41-60 Minor surgery BMI > 25 kg/m2 Swollen legs Varicose veins or History of unexplained or recurrent spontaneous Oral contraceptives or hormone replacement Sepsis (< 1 month) Serious lung disease, including pneumonia (< 1 month) Abnormal pulmonary function Acute myocardial infarction Congestive heart failure (< 1 month) History of inflammatory bowel disease Medical patient at bed rest Age 61-74 Arthroscopic surgery Major open surgery (> 45 min) Laparoscopic surgery (> 45 min) Malignancy Confined to bed (> 72 hours) Immobilizing plaster cast Central venous access Age >= 75 History of VTE Family history of VTE Factor V Leiden Prothrombin [id number] Lupus anticoagulant Anticardiolipin antibodies Elevated serum homocysteine Heparin-induced thrombocytopenia Other congenital or acquired thrombophilia Stroke (< 1 month) Elective arthroplasty Hip, pelvis, or leg fracture Acute spinal cord injury (< 1 month) Prophylaxis Regimen Total Risk Factor Score Risk Level Prophylaxis Regimen 0-1 Low Early ambulation 2 Moderate Order ONE of the following: *Sequential Compression Device (SCD) *Heparin 5000 units SQ BID 3-4 Higher Order ONE of the following medications: *Heparin 5000 units SQ TID *Enoxaparin/Lovenox 40 mg SQ daily (WT < 150 kg, CrCl > 30 mL/min) *Enoxaparin/Lovenox 30 mg SQ daily (WT < 150 kg, CrCl > 10-29 mL/min) *Enoxaparin/Lovenox 30 mg SQ BID (WT < 150 kg, CrCl > 30 mL/min) AND/OR *Sequential Compression Device (SCD) 5 or more Highest Order ONE of the following medications: *Heparin 5000 units SQ TID (Preferred with Epidurals) *Enoxaparin/Lovenox 40 mg SQ daily (WT < 150 kg, CrCl > 30 mL/min) *Enoxaparin/Lovenox 30 mg SQ daily (WT < 150 kg, CrCl > 10-29 mL/min) *Enoxaparin/Lovenox 30 mg SQ BID (WT < 150 kg, CrCl > 30 mL/min) AND *Sequential Compression Device (SCD) Assessment and Plan Assessment and Plan 82-year-old male with history of chronic back pain, HTN, HLD, A.fib, COPD, Dementia, IBS, AAA, BPH, PAD, presents with worsening weakness. Generalized Weakness: suspect multifactorial with polypharmacy, chronic deconditioning, back pain, and possible UTI. -Holding patient's gabapentin, baclofen, and oxycodone. -Check UA. -Check orthostatics. -Check Carotid U/S -Give gentle IVF hydration. -Monitor neuro checks. -Monitor on telemetry. -Consult PT/OT. -Consult hospice and case management. LLQ/Suprapubic Abdominal Pain with Dysuria: suspect secondary to UTI, however UA pending. -obtain UA, straight cath if needed -consider abdominal imaging if UA unremarkable Mild Rhabdomyolysis: CPK elevated at 1401. Unclear etiology. -Give IVF at 100cc/hr -Monitor CPK Elevated Troponin: likely secondary to rhabdo. No complaints of chest pain. -continue to trend serial cardiac enzymes and EKG -monitor on telemetry Cough: possible acute bronchitis. -CXR images reviewed, unremarkable. -tessalon prn cough -monitor for improvement HTN/HLD/Afib: chronic, stable -continue patient's home meds including metoprolol -monitor on telemetry Dementia: chronic, stable -continue patient's home meds including Aricept and Namenda All other medical conditions stable, continue home medications as appropriate. DVT Prophylaxis: heparin sq PCP-Dr. Anders Neurologist-Dr. Stubbs Urologist-Dr. Day Communications Consultant-Dr. Sr Box Blank Machine Feeder-Dr. Cedillo Discussed Condition With Patient, Patient's , ER This note was transcribed by soraya [Patricia Velázquez]. I, Dr. Ata Martin personally performed the history, physical exam, and medical decision making; and confirmed the accuracy of the information in the transcribed note. Authenticated by Dr. Ata Martin on 08/08/17 at 21:50. Patricia Velázquez PA-C Aug 08, 2017 14:01 Ata Martin MD Aug 08, 2017 21:51
--- NOTE | 2017-08-08 14:33 | RADRPT ---
EXAM DATE/TIME: 08/08/2017 13:20 [facility] COMPARISON: No previous studies available for comparison. INDICATIONS : Syncope. MEDICAL HISTORY : Hypertension. Aneurysm, abdominal. Chronic obstructive pulmonary disease. Neck pain. Glasses. Denture s. Dementia. Numbness. Hypercholestrolemia. Atrial fibrillation. Asthma. Arthritis. SURGICAL HISTORY : Angioplasty. Lumber laminectomy. back surgery. Right foot surgery. ENCOUNTER: Initial ACUITY: 1 day PAIN SCORE: 2/10 LOCATION: Bilateral neck PEAK SYSTOLIC VELOCITIES (cm/sec): ICA/CCA RATIO: Right: 1.0 Left: 1.9 ICA: Right: 135.0 Left: 136.5 CCA: Right: 133.1 Left: 73.3 ECA: Right: 115.6 Left: 185.5 VERTEBRAL: Right: 51.2 antegrade Left: 53.9 antegrade Elevated flow velocities and ICA/CCA ratios have been found to correlate with increased degrees of vessel stenosis, calculated as percentage of diameter relative to a normal segment of distal ICA/CCA FINDINGS: RIGHT CAROTID: No significant stenosis is visualized although there is significant atherosclerotic disease burden. The waveforms are within normal limits. LEFT CAROTID: No significant stenosis is visualized. Moderate atherosclerotic disease is present The waveforms are within normal limits. VERTEBRAL ARTERIES: Antegrade flow is seen in both vertebral arteries. MISCELLANEOUS: None. CONCLUSION: There significant plaquing but no obvious hemodynamic significant stenosis is seen. Enzo Golden MD on August 08, 2017 at 14:30 Board Certified Radiologist. This report was verified electronically.
[2017-08-08] MEDS: SODIUM BICARBONATE 8.4% INJ 150 MEQ in DEXTROSE 5% IN WATE 1000ML INJ 1,000 ML IV SCH ×2 (15:36)
[2017-08-08] MEDS: IBUPROFEN 400 MG TAB PO PRN ×2 (15:45→20:37)
[2017-08-08] MEDS ORDERED: BENZONATATE 100 MG CAP PO PRN (15:45)
[2017-08-08 17:44] LABS: BACTERIA, URINE FEW /hpf; BLOOD, URINE SMALL (NEG); CALCIUM OXALATE CRYSTALS,URINE OCC /hpf; GLUCOSE,URINE NEG (NEG); HYALINE CAST, URINE 17 /lpf (RARE); KETONE, URINE 10 mg/dL (NEG); MUCUS URINE FEW /lpf (OCC); NITRITE,URINE NEG (NEG)
[2017-08-08 17:45] LABS: COMMENT (UR) CATH-CULTURE IND; CULTURE IF INDICATED CATH CULTURE IND; URINE COLOR LIGHT-GREEN (YELLW/STRAW)
[2017-08-08] MEDS: cefTRIAXone INJ 1,000 MG in SODIUM CHLORIDE 0.9% INJ 100 ML IV SCH (20:35)
[2017-08-08] MEDS: HEPARIN SODIUM - SQ 10,000 UNITS/ML VIAL SQ SCH (20:36)
[2017-08-08] MEDS: MEMANTINE HCL 10 MG TAB PO SCH (20:37)
[2017-08-08] MEDS: DOCUSATE SODIUM 50 MG/SENNA 8.6 MG TAB PO SCH (20:37)
[2017-08-08] MEDS: SODIUM CHLORIDE 0.9% FLUSH 10 ML FLUSH IV FLUSH SCH (20:37)
[2017-08-08] MEDS: levETIRAcetam 500 MG TAB PO SCH (20:37)
[2017-08-08] MEDS: AMITRIPTYLINE HCL 25 MG TAB PO SCH (21:50)
[2017-08-08] MEDS: DONEPEZIL HCL 23 MG TAB PO SCH (21:50)
[2017-08-08] MEDS: TAMSULOSIN HCL 0.4 MG CAP PO SCH (21:50)
--- NOTE | 2017-08-08 22:37 | RADRPT ---
EXAM DATE/TIME: 08/08/2017 21:07 [facility] COMPARISON: No previous studies available for comparison. INDICATIONS : Obstruction. MEDICAL HISTORY : Hypertension. Aneurysm, abdominal. Chronic obstructive pulmonary disease. Glasses. Dentures. Dementia . Numbness. Hypercholestrolemia. Atrial fibrillation. Asthma. Arthritis. SURGICAL HISTORY : Angioplasty. Lumber laminectomy. back surgery. Right foot surgery. ENCOUNTER: Initial ACUITY: 1 day PAIN SCORE: 4/10 LOCATION: Bilateral flank MEASUREMENTS: RIGHT KIDNEY: 10.2 x 5.0 x 4.9 cm LEFT KIDNEY: 10.3 x 4.9 x 4.9 cm FINDINGS: RIGHT KIDNEY: Renal cortex is normal in thickness and echotexture. No hydronephrosis, stone, or mass. LEFT KIDNEY: Renal cortex is normal in thickness and echotexture. No hydronephrosis, stone, or mass. BLADDER: Within normal limits given the degree of distension. CONCLUSION: Negative renal sonogram. No evidence of hydronephrosis. Issa Escoto MD on August 08, 2017 at 22:35 Board Certified Radiologist. This report was verified electronically.
[2017-08-09] VITALS (8 sets, daily range): BP systolic 95–162; BP diastolic 41–89; PULSE 60–114; RESP 17–20; TEMP 97.4–98.2; O2SAT 94–99
[2017-08-09] MEDS: SODIUM BICARBONATE 8.4% INJ 150 MEQ in DEXTROSE 5% IN WATE 1000ML INJ 1,000 ML IV SCH ×2 (01:37)
[2017-08-09 08:14] LABS: AUTOMATED NEUTROPHIL # 5.3 TH/MM3 (1.8-7.7); BASOPHIL # 0.1 TH/MM3 (0-0.2); BASOPHIL % 0.7 % (0.0-2.0); EOSINOPHIL # 0.3 TH/MM3 (0-0.4); EOSINOPHIL % 3.4 % (0.0-4.0); HEMATOCRIT 40.4 % (39.0-51.0); HEMO FLAGS DIFF FINAL; LYMPH % 17.1 % (9.0-44.0); LYMPHOCYTE # 1.3 TH/MM3 (1.0-4.8); MEAN CELL VOLUME 92.1 FL (80.0-100.0); MEAN CORPUSCULAR HEMOGLOBIN 31.2 PG (27.0-34.0); MEAN CORPUSCULAR HGB CONC 33.8 % (32.0-36.0); MONO % 10.4 % (0.0-8.0); NEUT % 68.4 % (16.0-70.0); PLATELET COUNT 138 TH/MM3 (150-450); RED BLOOD COUNT 4.38 MIL/MM3 (4.50-5.90); RED CELL DISTRIBUTION WIDTH 13.3 % (11.6-17.2); WHITE BLOOD COUNT 7.8 TH/MM3 (4.0-11.0)
[2017-08-09] MEDS: IBUPROFEN 400 MG TAB PO PRN ×2 (08:34→17:01)
[2017-08-09] MEDS: SODIUM CHLORIDE 0.9% FLUSH 10 ML FLUSH IV FLUSH SCH ×2 (08:34→19:51)
[2017-08-09] MEDS: levETIRAcetam 500 MG TAB PO SCH ×2 (08:35→19:52)
[2017-08-09] MEDS: MEMANTINE HCL 10 MG TAB PO SCH ×2 (08:35→19:55)
[2017-08-09] MEDS: DOCUSATE SODIUM 50 MG/SENNA 8.6 MG TAB PO SCH ×2 (08:35→19:52)
[2017-08-09 08:40] LABS: ALT (GPT) 14 U/L (12-78); ANION GAP 4 MEQ/L (5-15); AST (GOT) 79 U/L (15-37); BICARBONATE 33.6 MEQ/L (21.0-32.0); CHLORIDE 100 MEQ/L (98-107); GLOMERULAR FILTRATION RATE 96 ML/MIN (>89); POTASSIUM 3.7 MEQ/L (3.5-5.1); SODIUM (NA) 138 MEQ/L (136-145)
[2017-08-09 08:49] LABS: ALKALINE PHOSPHATASE 59 U/L (45-117); BLOOD UREA NITROGEN 11 MG/DL (7-18); CREATINE KINASE 1408 U/L (39-308); TOTAL BILIRUBIN ADULT 0.8 MG/DL (0.2-1.0)
[2017-08-09] MEDS ORDERED: METOPROLOL SUCCINATE 50 MG EXTENDED RELEASE TAB PO SCH (09:00)
[2017-08-09 09:07] LABS: CKMB 7.8 NG/ML (0.5-3.6)
--- NOTE | 2017-08-09 09:36 | HHI.PR ---
Subjective Remarks Follow-up for generalized weakness. The patient complains of burning between his legs all the time not just when urinating. He complains of left flank pain , reports chronic back pain there. He reports feeling weak. He worked with PT , but was not able to walk past bedside. He reports bilateral leg cramping. He ate some of his breakfast. Objective Vitals Vital Signs Date Time Temp Pulse Resp B/P (MAP) Pulse Ox O2 Delivery O2 Flow Rate FiO2 08/09/17 08:00 107 08/09/17 07:20 97.5 79 18 162/72 (102) 98 08/09/17 03:27 97.9 114 17 126/59 (81) 94 08/08/17 23:44 97.9 107 17 135/77 (96) 94 08/08/17 23:33 108 08/08/17 19:43 99.1 96 17 135/65 (88) 96 08/08/17 16:19 98.6 63 20 138/62 (87) 96 08/08/17 15:54 60 08/08/17 14:35 98.0 60 20 142/64 (90) 97 08/08/17 14:15 60 18 150/70 (96) 98 08/08/17 13:00 58 14 148/67 (94) 98 Room Air 08/08/17 11:00 57 18 180/71 (107) 96 Room Air 08/08/17 10:07 54 24 08/08/17 09:58 95 Room Air 08/08/17 09:44 98.3 56 22 153/66 (95) 96 I/O 08/08/17 08/08/17 08/08/17 08/09/17 08/09/17 08/09/17 07:00 15:00 23:00 07:00 15:00 23:00 Output Total 200 ml Balance -200 ml Output Urine Total 200 ml # Voids 1 Result Diagram: 08/09/17 0652 08/09/1752 Imaging Last Impressions Head CT 08/08/17943 Signed Impressions: Service Date/Time: Tuesday, August 08, 2017 10:29 - CONCLUSION: Progressive white matter atrophic changes without evidence of focal acute abnormality.. Mali Sheridan MD Chest X-Ray 08/08/17943 Signed Impressions: Service Date/Time: Tuesday, August 08, 2017 09:54 - CONCLUSION: No acute disease. Mali Sheridan MD Carotid Artery Ultrasound 08/08/17 0000 Signed Impressions: Service Date/Time: Tuesday, August 08, 2017 13:20 - CONCLUSION: There significant plaquing but no obvious hemodynamic significant stenosis is seen. Enzo Golden MD Objective Remarks GENERAL: Well-developed fair-nourished. Chronically ill-appearing elderly male. In no acute distress. SKIN: Warm and dry. Diffuse areas of ecchymosis on the extremities. HEENT: Normocephalic. Pupils equal and round. Mucous membranes pink and moist. CARDIOVASCULAR: Regular rate and rhythm. No murmur appreciated. RESPIRATORY: No accessory muscle use. Clear to auscultation. Breath sounds equal bilaterally. GASTROINTESTINAL: Abdomen soft, non-tender, nondistended. Bowel sounds x4. MUSCULOSKELETAL: Tenderness to palpation left flank/paraspinal area. No clubbing or cyanosis. No edema. Bilateral calf tenderness to palpation. NEUROLOGICAL: Awake and alert. Moves upper and lower extremities spontaneously. Normal speech. PSYCHIATRIC: Appropriate mood and affect; insight and judgment fair. A/P Assessment and Plan 82-year-old male with history of chronic back pain, HTN, HLD, A.fib, COPD, Dementia, IBS, AAA, BPH, PAD, presents with worsening weakness. Generalized Weakness: suspect multifactorial with polypharmacy, chronic deconditioning, back pain, and UTI. -Holding patient's gabapentin, baclofen, and oxycodone due to sedating effects. -Treating UTI as below -Check orthostatics. -Carotid U/S with no significant stenosis -Give gentle IVF hydration. -Monitor neuro checks. -Monitor on telemetry. -Consulted PT/OT. -Consulted hospice and case management. UTI: LLQ/Suprapubic Abdominal Pain with Dysuria. UA with evidence of UTI. Renal ultrasound unremarkable with no hydronephrosis. -Continue empiric IV Rocephin and follow-up urine culture Mild Rhabdomyolysis: CPK persistently elevated at 1400. Unclear etiology. -Continue D5 with bicarbonate IVF at 100cc/hr -Monitor CPK Bilateral lower extremity cramping and tenderness: Possibly secondary to rhabdomyolysis as above. -Check ultrasound to rule out DVT Elevated Troponin: No complaints of chest pain. 0.06, 0.05, 0.06; flat, nonischemic. -monitor on telemetry Cough: possible acute bronchitis. -CXR reviewed, unremarkable. -tessalon prn cough -monitor HTN/HLD/Afib: chronic, stable -continue patient's home meds including metoprolol -monitor on telemetry Dementia: chronic, stable -continue patient's home meds including Aricept and Namenda All other medical conditions stable, continue home medications as appropriate. DVT Prophylaxis: heparin sq Discharge Planning Continue treatment for UTI and rhabdomyolysis. Could consider discharge sooner into the care of hospice if patient and are agreeable. 0150 hospice has evaluated the patient and has discussed with the patient's family; the plan at this time is for discharge to [facility] for hospice to continue care there; hospice requests discharge tomorrow when they will be able to take care of the patient at home. Mohsen Easley Aug 09, 2017 09:36
[2017-08-09] MEDS ORDERED: TIOTROPIUM BROMIDE 18 MCG INH INH SCH (10:00)
--- NOTE | 2017-08-09 10:09 | RADRPT ---
EXAM DATE/TIME: 08/09/2017 09:36 [facility] COMPARISON: No previous studies available for comparison. INDICATIONS : Bilateral leg pain. MEDICAL HISTORY : Aneurysm, abdominal. Peripheral vascular disease. Hypercholesterolemia. Dementia. Afib. HTN. COPD. As thma. IBS. Enlarged prostate. BPH. Arthritis. Anxiety. MRSA. SURGICAL HISTORY : Angioplasty. Lumbar laminectomy. Back surgery for drop foot. Angiogram. Right total hip. Right foot s urgery. Left hip replacement. Right upper leg stent. ENCOUNTER: Subsequent ACUITY: 1 day PAIN SCORE: 4/10 LOCATION: Bilateral leg. TECHNIQUE: Venous ultrasound of the left and right leg was performed from the inguinal ligament to the proximal calf. Real-time, color Doppler and spectral tracing, compression and augmentation techniques were us ed. FINDINGS: RIGHT LEG: There is normal compressibility of the deep venous system from the inguinal region to the proximal ca lf. No echogenic clot is seen in the lumen of the common femoral, femoral, popliteal, and posterior tibial veins. There is a normal response of the venous system to proximal and distal augmentation an d respiration. LEFT LEG: There is normal compressibility of the deep venous system from the inguinal region to the proximal ca lf. No echogenic clot is seen in the lumen of the common femoral, femoral, popliteal, and posterior tibial veins. There is a normal response of the venous system to proximal and distal augmentation an d respiration. CONCLUSION: Normal examination. Jamie Pike MD on August 09, 2017 at 10:08 Board Certified Radiologist. This report was verified electronically.
[2017-08-09] MEDS: POTASSIUM CHLORIDE INJ 20 MEQ, SODIUM BICARBONATE 8.4% INJ 50 MEQ in DEXT 5%-NACL 0.45%... IV SCH (11:12)
[2017-08-09] MEDS: HEPARIN SODIUM - SQ 10,000 UNITS/ML VIAL SQ SCH ×2 (11:12→19:55)
[2017-08-09] MEDS ORDERED: NEUR300C PO (16:49)
[2017-08-09] MEDS ORDERED: GABAPENTIN 300 MG CAP PO ONE (18:00)
--- NOTE | 2017-08-09 19:34 | EKG ---
Date Performed: 08/08/2017 Time Performed: 18:35:33 PTAGE: 82 years EKG: Sinus rhythm NONSPECIFIC T-WAVE ABNORMALITY BORDERLINE ECG PREVIOUS TRACING : 08/08/2017 09.52 Compared to prior tracing no significant change DOCTOR: Nestor Mcdonald Interpretating Date/Time 08/09/2017 19:31:55
--- NOTE | 2017-08-09 19:45 | EKG ---
Date Performed: 08/08/2017 Time Performed: 09:52:47 PTAGE: 82 years EKG: SINUS BRADYCARDIA BORDERLINE ECG PREVIOUS TRACING : 01/20/2016 13.37 Compared to prior tracing no significant change DOCTOR: Nestor Mcdonald Interpretating Date/Time 08/09/2017 19:40:07
[2017-08-09] MEDS: DONEPEZIL HCL 23 MG TAB PO SCH (19:52)
[2017-08-09] MEDS: TAMSULOSIN HCL 0.4 MG CAP PO SCH (19:52)
[2017-08-09] MEDS: AMITRIPTYLINE HCL 25 MG TAB PO SCH (19:52)
[2017-08-09] MEDS: cefTRIAXone INJ 1,000 MG in SODIUM CHLORIDE 0.9% INJ 100 ML IV SCH (20:00)
[2017-08-09] MEDS ORDERED: GABAPENTIN 300 MG CAP PO SCH (21:00)
[2017-08-10 00:15] VITALS: BP 129/60; PULSE 53; RESP 18; TEMP 97.9; O2SAT 96
[2017-08-10 00:36] VITALS: PULSE 52
[2017-08-10 03:32] VITALS: BP 131/84; PULSE 51; RESP 18; TEMP 97.9; O2SAT 95
[2017-08-10 03:53] VITALS: PULSE 52
[2017-08-10] MEDS: POTASSIUM CHLORIDE INJ 20 MEQ, SODIUM BICARBONATE 8.4% INJ 50 MEQ in DEXT 5%-NACL 0.45%... IV SCH (06:14)
[2017-08-10 08:00] VITALS: BP_SYST 156; BP_SYST 160; BP_SYST 181; BP_DIAS 68; BP_DIAS 70; BP_DIAS 74; PULSE 54; RESP 20; TEMP 97.4; O2SAT 95
[2017-08-10 08:12] VITALS: PULSE 52
== END 2017-08-10 09:52 | disposition home or self-care (01) ==
LOC: NEPE 09:31 → NEDA 12:12 → NEPGCP 14:22
PROVIDERS: ADMIT Internal Medicine; ATTEND Internal Medicine
DX: R53.1 Weakness (principal); M62.82 Rhabdomyolysis; R74.8 Abnormal levels of other serum enzymes; N39.0 Urinary tract infection, site not specified; R05 Cough; M79.605 Pain in left leg; M79.604 Pain in right leg; R55 Syncope and collapse; R41.82 Altered mental status, unspecified; R61 Generalized hyperhidrosis; R00.1 Bradycardia, unspecified; R25.2 Cramp and spasm; R06.02 Shortness of breath; I10 Essential (primary) hypertension; I48.2 Chronic atrial fibrillation; E78.00 Pure hypercholesterolemia, unspecified; J44.9 Chronic obstructive pulmonary disease, unspecified; J45.909 Unspecified asthma, uncomplicated; I73.9 Peripheral vascular disease, unspecified; K58.9 Irritable bowel syndrome, unspecified; M54.5 Low back pain; G89.29 Other chronic pain; F03.90 Unspecified dementia, unspecified severity, without behavioral disturbance, psychotic disturbance, mood disturbance, and anxiety; F41.9 Anxiety disorder, unspecified; M19.90 Unspecified osteoarthritis, unspecified site; N40.0 Benign prostatic hyperplasia without lower urinary tract symptoms; Z79.899 Other long term (current) drug therapy
CPT/HCPCS: 70450; 71010; 76775; 80053; 81001; 82550; 82552; 83605; 84443; 84484; 85025; 85610; 85730; 87040; 87086; 93005; 93880; 93970; 96365; 96366; 96372; 97110; 97116; 97163; 97167; 99285; G0378; G8987; G8988; J0696; J1644; J3480; J7070